=== PATIENT | female | born 1960 | race Caucasian/White ===

== ENCOUNTER 2017-01-01 09:36 | Emergency (ER) | payer BC, MEDICARE ==
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
[2017-01-01 10:16] LABS: Basophils % (A) 1 %; CHCM 31.7; Eosinophils % (A) 1 %; HCT 35.7 % (34.0-46.0); HDW 2.06; HGB 11.5 gm/dL (11.4-16.0); Luc # (Auto) 0.03; Luc % (Auto) 1; Lymphocytes % (A) 27 %; MCH 29.5 pg (25.0-35.0); MCHC 32.1 g/dL (31.0-37.0); MCV 91.7 fL (80.0-100.0); Mean Platelet Volume 8.3; Monocytes # (A) 0.2 k/uL (0-1.0); Monocytes % (A) 5 %; Neutrophils # (A) 2.4 k/uL (1.3-7.7); Neutrophils % (A) 65 %; RDW 13.3 % (11.5-15.5); WBC 3.6 k/uL (3.8-10.6); WBC (Perox) 3.66
[2017-01-01 10:18] LABS: Appearance,Urine Clear (Clear); Bilirubin,Urine Negative (Negative); Glucose,Urine (UA) Negative (Negative); Ketones,Urine Negative (Negative); Leukocyte Esterase,Urine Negative (Negative); Nitrite,Urine Negative (Negative); Particle Count 271; Protein,Urine Negative (Negative); RBC,Urine <1 /hpf (0-5); Specific Gravity,Urine 1.002 (1.001-1.035); UA Billing (MACRO vs. MICRO) MICRO; Urobilinogen,Urine <2.0 mg/dL (<2.0); WBC,Urine <1 /hpf (0-5)
[2017-01-01 10:24] LABS: INR 1.1 (<1.2); Partial Thromboplastin Time 23.5 sec (22.0-30.0); Prothrombin Time 10.9 sec (9.0-12.0)
[2017-01-01 10:29] LABS: ALT 25 U/L (9-52); AST 17 U/L (14-36); Alkaline Phosphatase 63 U/L (38-126); Amylase 86 U/L (30-110); Anion Gap 11 mmol/L; Blood Urea Nitrogen 7 mg/dL (7-17); Calcium 10.2 mg/dL (8.4-10.2); Carbon Dioxide 23 mmol/L (22-30); Chloride 104 mmol/L (98-107); Glucose 94 mg/dL (74-99); Magnesium 1.9 mg/dL (1.6-2.3); Non-African American GFR(MDRD) 57 (>60 ml/min/1.73 sqM); Potassium 4.1 mmol/L (3.5-5.1); Sodium 138 mmol/L (137-145); Total Bilirubin 0.7 mg/dL (0.2-1.3); Total Protein 6.9 g/dL (6.3-8.2)
[2017-01-01 10:35] LABS: Creatine Kinase 62 U/L (30-135)
[2017-01-01 10:48] LABS: Creatine Kinase MB 0.5 ng/mL (0.0-2.4); Troponin I <0.012 ng/mL (0.000-0.034)
--- NOTE | 2017-01-01 10:50 | XR ---
EXAMINATION TYPE: XR chest 2V DATE OF EXAM: 01/01/2017 COMPARISON: NONE HISTORY: Rib pain and weakness TECHNIQUE: Frontal and lateral views of the chest are obtained. FINDINGS: There is no focal air space opacity, pleural effusion, or pneumothorax seen. The cardiac silhouette size is within normal limits. The osseous structures are intact. Surgical fixation thora columbar rods are partially visualized from fixation of an S-shaped scoliotic curvature, also partial ly visualized. IMPRESSION: No acute cardiopulmonary process.
--- NOTE | 2017-01-01 10:51 | XR ---
EXAMINATION TYPE: XR KUB DATE OF EXAM: 01/01/2017 10:30 AM CLINICAL HISTORY: Right-sided rib pain and weakness. TECHNIQUE: Single supine KUB image of the abdomen is obtained. COMPARISON: None. FINDINGS: Scattered gas is seen in non-distended small bowel loops. Gas and fecal material is seen in non-distended colon. No abnormal calcification within the abdomen. The lung bases are clear and the osseous structures are intact. Partial visualization of an S-shaped rotatory scoliosis with thoracolu mbar fixation rods and surgical resection of the posterior elements of the lower lumbar spine are not ed. Phleboliths are seen within the low pelvis. IMPRESSION: Nonobstructive bowel gas pattern.
[2017-01-01] MEDS ORDERED: HYDROmorphone 1 MG/ML 1 ML SYRINGE IVP STA (10:57)
[2017-01-01] MEDS ORDERED: RX INFO: IV CONTRAST WAS GIVEN 1 EACH MISC MISCELLANE PRN (10:57)
[2017-01-01] MEDS ORDERED: ONDANSETRON 4 MG/2 ML VIAL IVP STA (10:57)
[2017-01-01] MEDS ORDERED: HYDROmorphone 0.5 MG/0.5 ML SYRINGE IVP STA (11:46)
--- NOTE | 2017-01-01 12:04 | CT ---
EXAMINATION TYPE: CT abdomen pelvis w con DATE OF EXAM: 01/01/2017 HISTORY: Patient complains of RUQ/flank pain and weakness. CT DLP: 960mGycm Automated Exposure Control for Dose Reduction was Utilized. CONTRAST: CT scan of the abdomen and pelvis is performed with IV Contrast, patient injected with 80 mL of Omnip aque 300. COMPARISON: 01/07/2015r FINDINGS: Rudy artifact from the patient's multilevel thoracolumbar fusion rods partially obscure vi sualization of surrounding structures. LUNG BASES: Bibasilar subsegmental dependent atelectasis is noted as well as pleural parenchymal line ar scarring. LIVER/GB: 6 mm hypoattenuated hepatic lesion within segment 8 of the liver is similar to the exam of 2015 and likely relates to a benign cyst. Additionally wedge-shaped area of hypoattenuation within se gment IVb is also similar to the prior and likely relates to focal fatty infiltration. Smaller hypoat tenuated lesions near the hepatic dome are subtly seen on the prior exam and also likely related to h epatic cysts although too small to accurately characterize. No intrahepatic biliary ductal dilatation . Gallbladder is elongated although there is no common bile duct dilation. PANCREAS: No significant abnormality is seen. No ductal dilatation SPLEEN: No significant abnormality is seen. ADRENALS: No significant abnormality is seen. Adrenal glands are symmetric and maintained their radha l adreniform morphology. KIDNEYS: No significant abnormality is seen. 4 mm hypoattenuated region is seen within the left kidne y, too small to accurately characterize similar to a right 5.5 mm lesion. BOWEL: Small hiatal hernia and postsurgical changes of the gastroesophageal junction are noted. Anast omotic site is seen within the right hemicolon. Colon is largely decompressed and suboptimally evalua melody given contrast and decompression. Few colonic diverticula are seen without pericolonic fat strand ing. UTERUS/ADNEXA: No gross abnormality seen. LYMPH NODES: No greater than 1cm abdominal or pelvic lymph nodes are appreciated. OSSEOUS STRUCTURES: There is an S-shaped rotatory scoliotic curvature of the thoracolumbar spine with surgical fixation and resection of the posterior elements of the lower lumbar spine. OTHER: No significant additional abnormality is seen. IMPRESSION: 1. Elongation of the gallbladder without evidence of common bile duct dilation. No CT evidence of cho lelithiasis. Correlate with serum laboratory values given the patient's right-sided abdominal pain. 2. Small hiatal hernia and postoperative changes at the gastroesophageal junction. 3. Stable hypoattenuated subcentimeter hepatic lesions favored to represent hepatic cysts. Similar st able renal hypoattenuated lesions are also favored to represent cysts although too small to accuratel y characterize. 4. Colonic diverticula without evidence of acute diverticulitis.
[2017-01-01 13:14] VITALS: BP 118/82; PULSE 87; RESP 18; TEMP 97.9
== END 2017-01-01 13:18 | disposition home or self-care (01) ==
LOC: EC 09:36
DX: R10.9 Unspecified abdominal pain (principal); M54.9 Dorsalgia, unspecified; R53.1 Weakness; K44.9 Diaphragmatic hernia without obstruction or gangrene; K57.30 Diverticulosis of large intestine without perforation or abscess without bleeding; N28.89 Other specified disorders of kidney and ureter; K76.89 Other specified diseases of liver; I10 Essential (primary) hypertension; F32.9 Major depressive disorder, single episode, unspecified; Z79.899 Other long term (current) drug therapy; Z88.6 Allergy status to analgesic agent; Z90.49 Acquired absence of other specified parts of digestive tract; Z98.890 Other specified postprocedural states; Z53.8 Procedure and treatment not carried out for other reasons
CPT/HCPCS: 36415; 93005; 85379; 80053; 82150; 82550; 82553; 83690; 83735; 84484; 85025; 85610; 85730; 81001; 71020; 74000; 74177; 99284; 96374; 96375; J2405; Q9967; J1170

== ENCOUNTER → 2017-10-08 | Outpatient (CLI) | payer BC, MEDICARE ==
--- NOTE | 2017-10-13 07:37 | MM ---
Reason for exam: screening (asymptomatic). Last mammogram was performed 8 years ago. History: Patient is postmenopausal. Physical Findings: A clinical breast exam by your physician is recommended on an annual basis and results should be correlated with mammographic findings. MG Screening Mammo w CAD Bilateral CC and MLO view(s) were taken. Prior study comparison: October 23, 2009, bilateral digital screening mammogram. There are scattered fibroglandular densities. No significant changes when compared with prior studies. ASSESSMENT: Negative, BI-RAD 1 RECOMMENDATION: Routine screening mammogram of both breasts in 1 year.
== END | disposition home or self-care (01) ==
LOC: RADMAMWWP 12:51
PROVIDERS: ATTEND Obstetrics & Gynecology Obstetrics
DX: Z12.31 Encounter for screening mammogram for malignant neoplasm of breast (principal)
CPT/HCPCS: 77067

== ENCOUNTER 2018-05-29 11:29 | Inpatient (IN) | payer BC, MEDICARE ==
[2018-05-29] MEDS ORDERED: SODIUM CHLORIDE 0.9% 1,000 ML IV STA (11:55)
[2018-05-29] MEDS ORDERED: AMPICILLIN-SULBACTAM 3 GM in SODIUM CHLORIDE 0.9% 100 ML IVPB STA (11:58)
[2018-05-29] MEDS ORDERED: ONDANSETRON 4 MG/2 ML VIAL IVP STA (12:14)
[2018-05-29] MEDS ORDERED: MORPHINE SULFATE 4 MG/ML SYRINGE IVP STA (12:14)
--- NOTE | 2018-05-29 12:19 | ED ---
Animal Bite HPI - General Chief Complaint: Animal Bite Stated Complaint: dog bite rt arm Time Seen by Provider: 05/29/18 11:39 Source: patient, RN notes reviewed Mode of arrival: ambulatory Limitations: no limitations - History of Present Illness Initial Comments: 57-year-old female presents emergency Department chief complaint of dog bite to her right arm. Patient states that happened yesterday by her dog was up-to-date vaccinations and states that she is up-to-date on her tetanus. Patient states she took some old Augmentin yesterday but states she woke up with severe right wrist pain, redness, streaking redness up her arm and complains of right axilla pain. Patient reports no fever or chills, night sweats. Patient states that she's had no major infections from bites in the past. - Related Data Home Medications Medication Instructions Recorded Confirmed Citalopram Hydrobromide [CeleXA] 20 mg PO QAM 11/01/13 01/01/17 Celecoxib [CeleBREX] 200 mg PO BID PRN 01/07/15 01/01/17 HYDROcodone/APAP 7.5-325MG [[place] 1 tab PO TID PRN 01/01/17 01/01/17 7.5-325] Valsartan [Diovan] 80 mg PO DAILY 01/01/17 01/01/17 Allergies Allergy/AdvReac Type Severity Reaction Status Date / Time NSAIDS (Non-Steroidal Allergy Unknown Verified 01/01/17 10:44 Anti-Inflamma Review of Systems ROS Statement: Those systems with pertinent positive or pertinent negative responses have been documented in the HPI. ROS Other: All systems not noted in ROS Statement are negative. 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 pain injections, surgery to remove part of thyroid and two tumors 11/2013 Past Anesthesia/Blood Transfusion Reactions: No Reported Reaction Past Psychological History: Anxiety, Depression Smoking Status: Never smoker Past Alcohol Use History: Occasional Past Drug Use History: None Reported - Past Family History Father Family Medical History: Hypertension Mother Family Medical History: Hypertension General Exam Limitations: no limitations General appearance: alert, in no apparent distress Head exam: Present: atraumatic, normocephalic, normal inspection Neck exam: Present: normal inspection. Absent: tenderness, meningismus, lymphadenopathy Respiratory exam: Present: normal lung sounds bilaterally. Absent: respiratory distress, wheezes, rales, rhonchi, stridor Cardiovascular Exam: Present: regular rate, normal rhythm, normal heart sounds. Absent: systolic murmur, diastolic murmur, rubs, gallop, clicks Extremities exam: Present: other (Right axilla there is tenderness with palpation, palpable lymph nodes, there is a puncture wound to the right wrist on the ventral aspect, surrounding erythema and noted erythema streaking past the right elbow) Skin exam: Present: warm, dry Course Vital Signs 05/29/18 11:32 Temperature 98.8 F Pulse Rate 92 Respiratory 18 Rate Blood Pressure 111/79 O2 Sat by Pulse 98 Oximetry Medical Decision Making - Medical Decision Making 57-year-old female present for dog bite, infection. Patient has taken advice at home and scheduled outpatient treatment. Patient will be admitted for cellulitis related to dog bite on [place]. - Lab Data Result diagrams: 05/29/18 12:00 05/29/18 12:00 Lab Results 05/29/18 05/29/18 05/29/18 Range/Units 12:00 12:00 12:00 WBC 8.3 (3.8-10.6) k/uL RBC 4.15 (3.80-5.40) m/uL Hgb 12.3 (11.4-16.0) gm/dL Hct 38.1 (34.0-46.0) % MCV 91.7 (80.0-100.0) fL MCH 29.6 (25.0-35.0) pg MCHC 32.3 (31.0-37.0) g/dL RDW 13.6 (11.5-15.5) % Plt Count 263 (150-450) k/uL Neutrophils % 74 % Lymphocytes % 17 % Monocytes % 6 % Eosinophils % 2 % Basophils % 1 % Neutrophils # 6.1 (1.3-7.7) k/uL Lymphocytes # 1.4 (1.0-4.8) k/uL Monocytes # 0.5 (0-1.0) k/uL Eosinophils # 0.2 (0-0.7) k/uL Basophils # 0.0 (0-0.2) k/uL Sodium 141 (137-145) mmol/L Potassium 4.4 (3.5-5.1) mmol/L Chloride 104 (98-107) mmol/L Carbon Dioxide 28 (22-30) mmol/L Anion Gap 9 mmol/L BUN 8 (7-17) mg/dL Creatinine 0.69 (0.52-1.04) mg/dL Est GFR (CKD-EPI)AfAm >90 (>60 ml/min/1.73 sqM) Est GFR (CKD-EPI)NonAf >90 (>60 ml/min/1.73 sqM) Glucose 89 (74-99) mg/dL Plasma Lactic Acid Stiven 2.0 (0.7-2.0) mmol/L Calcium 9.7 (8.4-10.2) mg/dL Total Bilirubin 0.9 (0.2-1.3) mg/dL AST 35 (14-36) U/L ALT 33 (9-52) U/L Alkaline Phosphatase 55 (38-126) U/L Total Protein 7.0 (6.3-8.2) g/dL Albumin 4.6 (3.5-5.0) g/dL Disposition Clinical Impression: Dog bite Disposition: ADMITTED IP TO THIS [facility] Instructions (If sedation given, give patient instructions): Animal Bite (ED) Referrals: Dalton Cook DO [Primary Care Provider] - 1-2 days
[2018-05-29 12:22] LABS: Basophils % (A) 1 %; Eosinophils # (A) 0.2 k/uL (0-0.7); Eosinophils % (A) 2 %; HCT 38.1 % (34.0-46.0); HGB 12.3 gm/dL (11.4-16.0); Lymphocytes # (A) 1.4 k/uL (1.0-4.8); Lymphocytes % (A) 17 %; MCH 29.6 pg (25.0-35.0); MCHC 32.3 g/dL (31.0-37.0); MCV 91.7 fL (80.0-100.0); Mean Platelet Volume 7.3; Monocytes # (A) 0.5 k/uL (0-1.0); Monocytes % (A) 6 %; Neutrophils # (A) 6.1 k/uL (1.3-7.7); Neutrophils % (A) 74 %; Platelet Count 263 k/uL (150-450); RBC 4.15 m/uL (3.80-5.40); RDW 13.6 % (11.5-15.5); WBC 8.3 k/uL (3.8-10.6)
--- NOTE | 2018-05-29 12:35 | XR ---
EXAMINATION TYPE: XR wrist complete RT DATE OF EXAM: 05/29/2018 COMPARISON: NONE HISTORY: 57-year-old female with pain TECHNIQUE: 4 views FINDINGS: Moderate to severe degenerative joint space narrowing and marginal spurring at the first CMC joint an d moderate at the triscaphe joint. The radiocarpal and distal radioulnar joint appear intact. Metacar pal compartment appear intact. No acute fracture, subluxation, dislocation seen. IMPRESSION: Moderate to severe osteoarthritic changes of the base of the thumb. No acute osseous abnormality seen .
[2018-05-29 12:36] LABS: ALT 33 U/L (9-52); AST 35 U/L (14-36); Albumin 4.6 g/dL (3.5-5.0); Alkaline Phosphatase 55 U/L (38-126); Anion Gap 9 mmol/L; Blood Urea Nitrogen 8 mg/dL (7-17); Calcium 9.7 mg/dL (8.4-10.2); Carbon Dioxide 28 mmol/L (22-30); Chloride 104 mmol/L (98-107); Glucose 89 mg/dL (74-99); Potassium 4.4 mmol/L (3.5-5.1); Sodium 141 mmol/L (137-145); Total Bilirubin 0.9 mg/dL (0.2-1.3)
[2018-05-29] MEDS ORDERED: ACETAMINOPHEN TAB 325 MG TAB PO PRN (13:10)
[2018-05-29] MEDS ORDERED: NALOXONE 0.4 MG/ML 1 ML VIAL IV PRN (13:10)
[2018-05-29] MEDS ORDERED: HYDROcodone/APAP 5-325MG 1 EACH TAB PO PRN (13:10)
[2018-05-29] MEDS: SODIUM CHLORIDE 0.9% 1,000 ML IV SCH (15:45)
[2018-05-29] MEDS: AMPICILLIN-SULBACTAM 3 GM in SODIUM CHLORIDE 0.9% 100 ML IVPB SCH ×2 (17:14→23:24)
[2018-05-29] MEDS: MORPHINE SULFATE 4 MG/ML SYRINGE IV PRN (17:14)
[2018-05-29] MEDS: HYDROcodone/APAP 7.5-325MG 1 EACH TAB PO SCH (21:35)
--- NOTE | 2018-05-29 22:04 | P.HPIM ---
History of Present Illness H&P Date: 05/29/18 Chief Complaint: Right arm swelling and redness Patient is a 57-year-old female with a known history of fibromyalgia, hypertension, osteoarthritis, hypothyroidism and anxiety/depression came to the hospital with complaints of dog bite on her right arm. Patient says that she was bitten by her dog on the right wrist. Since then patient has been having redness and swelling and pain from right wrist up to the shoulder and axillary area. Patient has been having worsening pain with movement. Denied any fever or chills. No sweating. Patient does have a previous history of dog bite. Patient says that her nausea is up-to-date with vaccination and patient is also up-to-date on her tetanus vaccine. Patient took her old Augmentin yesterday without improvement in pain. Patient came to ER for further management. Patient follows with Dr. Cook as an outpatient. X-ray of the right wrist showed moderate to severe osteoarthritic changes of the base of the thumb. No acute osseous abnormality seen. No leukocytosis. Review of Systems Constitutional: Patient denies any fever or chills . No generalized weakness or weight loss. Abdomen: Patient denied nausea vomiting and diarrhea and abdominal pain. Cardiovascular: Patient denies any chest pain or short of breath no palpitations. Respiratory: patient denied any cough is from production. No shortness of breath Neurologic: Patient denied any numbness or tingling headache. Musculoskeletal: Patient denies any complaints of joint swelling or deformity. Right arm swelling and redness and pain Skin: Negative Psychiatric: Negative Endocrine: No heat or cold intolerance. No recent weight gain. Genitourinary: No dysuria or hematuria. 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 pain injections, surgery to remove part of thyroid and two tumors 11/2013 Past Anesthesia/Blood Transfusion Reactions: No Reported Reaction Past Psychological History: Anxiety, Depression Smoking Status: Never smoker Past Alcohol Use History: Occasional Past Drug Use History: None Reported - Past Family History Father Family Medical History: Hypertension Mother Family Medical History: Hypertension Medications and Allergies Home Medications Medication Instructions Recorded Confirmed Type Citalopram Hydrobromide [CeleXA] 20 mg PO DAILY 11/01/13 05/29/18 History Celecoxib [CeleBREX] 200 mg PO BID PRN 01/07/15 05/29/18 History HYDROcodone/APAP 7.5-325MG [[place] 1 tab PO TID 01/01/17 05/29/18 History 7.5-325] Losartan Potassium 50 mg PO DAILY 05/29/18 05/29/18 History hydrOXYzine HCL [Atarax] 25 mg PO BID 05/29/18 05/29/18 History Allergies Allergy/AdvReac Type Severity Reaction Status Date / Time NSAIDS (Non-Steroidal Allergy Unknown Verified 05/29/18 13:47 Anti-Inflamma aspirin AdvReac HISTORY OF Verified 05/29/18 13:47 STOMACH ULCERS Physical Exam Vitals: Vital Signs Temp Pulse Pulse Pulse Resp BP BP 05/29/18 20:40 97.8 F 77 16 132/88 05/29/18 13:59 98.1 F 75 137/84 05/29/18 13:46 82 16 112/74 05/29/18 11:32 98.8 F 92 18 111/79 Pulse Ox 05/29/18 20:40 96 05/29/18 13:59 98 05/29/18 13:46 99 05/29/18 11:32 98 Intake and Output 05/29/18 05/29/18 05/29/18 06:59 14:59 22:59 Other: Weight 58.967 kg PHYSICAL EXAMINATION: Patient is lying in the bed comfortably, no acute distress, awake alert and oriented.. HEENT: Normocephalic. Neck is supple. Pupils reactive. Nostrils clear. Oral cavity is moist. Ears reveal no drainage. Neck reveals no JVD, carotid bruits, or thyromegaly. CHEST EXAMINATION: Trachea is central. Symmetrical expansion. Lung hawley clear to auscultation and percussion. CARDIAC: Normal S1, S2 with no gallops. No murmurs ABDOMEN: Soft. Bowel sounds normal. No organomegaly. No abdominal bruits. Extremities: reveal no edema. No clubbing or cyanosis Right upper extremity swelling and redness from up above the wrist up to the elbow and also streak-like redness extending up to the axillary area. Neurologically awake, alert, oriented x3 with well-coordinated movements. No focal deficits noted Skin: No rash or skin lesions. Psychiatric: Coperative. Nonsuicidal Musculoskeletal: No joint swelling or deformity. Normal range of motion. Results CBC & Chem 7: 05/29/18 12:00 05/29/18 12:00 Thrombosis Risk Factor Assmnt - DVT/VTE Prophylaxis DVT/VTE Prophylaxis: Pharmacologic Prophylaxis ordered - Choose All That Apply Any of the Below Risk Factors Present?: Yes Each Factor Represents 1 point: Age 41-60 years Thrombosis Risk Factor Assessment Total Risk Factor Score: 1 Thrombosis Risk Factor Assessment Level: Low Risk Assessment and Plan Assessment: Dog bite on the right wrist with cellulitis of the forearm Hypertension Hypothyroidism Fibromyalgia Osteoarthritis History of stomach ulcers Chronic back pain History of hiatal hernia repair/Cee fundoplication Anxiety/depression DVT prophylaxis Plan: Patient will be continued on antibiotics in the form of Unasyn. Continue with pain medications and home medications. Due to streak-like redness extending up to the axilla will also get ultrasound venous duplex of the right upper extremity to rule out DVT. Follow-up blood cultures. Continue the current management and further recommendations based on the clinical course. Time with Patient: Greater than 30
[2018-05-30] MEDS: MORPHINE SULFATE 4 MG/ML SYRINGE IV PRN ×4 (02:25→23:51)
[2018-05-30] MEDS: AMPICILLIN-SULBACTAM 3 GM in SODIUM CHLORIDE 0.9% 100 ML IVPB SCH ×4 (06:09→23:44)
[2018-05-30] MEDS: LOSARTAN 50 MG TAB PO SCH (09:15)
[2018-05-30] MEDS: HEPARIN SODIUM,PORCINE 5,000 UNIT/ML 1 ML VIAL SQ SCH ×2 (09:15→21:55)
[2018-05-30] MEDS: HYDROcodone/APAP 7.5-325MG 1 EACH TAB PO SCH ×3 (09:16→21:55)
[2018-05-30] MEDS: CITALOPRAM HYDROBROMIDE 20 MG TAB PO SCH (09:16)
--- NOTE | 2018-05-30 09:46 | US ---
EXAMINATION TYPE: US venous doppler duplex UE RT DATE OF EXAM: 05/30/2018 COMPARISON: NONE CLINICAL HISTORY: dog bite . SIDE PERFORMED: rt Right Arm: Negative for DVT IMPRESSION: 1. Right upper extremity venous ultrasound negative for deep venous thrombosis.
--- NOTE | 2018-05-30 12:37 | P.PN ---
Subjective Progress Note Date: 05/30/18 Patient is a 57-year-old female with a known history of fibromyalgia, hypertension, osteoarthritis, hypothyroidism and anxiety/depression came to the hospital with complaints of dog bite on her right arm. Patient says that she was bitten by her dog on the right wrist. Since then patient has been having redness and swelling and pain from right wrist up to the shoulder and axillary area. Patient has been having worsening pain with movement. Denied any fever or chills. No sweating. Patient does have a previous history of dog bite. Patient says that her nausea is up-to-date with vaccination and patient is also up-to-date on her tetanus vaccine. Patient took her old Augmentin yesterday without improvement in pain. Patient came to ER for further management. Patient follows with Dr. Cook as an outpatient. X-ray of the right wrist showed moderate to severe osteoarthritic changes of the base of the thumb. No acute osseous abnormality seen. No leukocytosis. 05/30/18 maintained on Unasyn, improving redness and swelling from wrist up through to axillary area. Able to move wrist freely, fine motor skills present of the affected extremity. Afebrile, blood cultures pending. Denies chest p ain, palpitations or increased shortness of breath. Objective - Vital Signs Vital signs: Vital Signs Temp 98 F 05/29/18 23:21 Pulse 72 05/29/18 23:21 Resp 18 05/29/18 23:21 BP 126/83 05/29/18 23:21 Pulse Ox 97 05/29/18 23:21 Intake & Output 05/29/18 05/30/18 05/30/18 18:59 06:59 18:59 Intake Total 1700 Balance 1700 Weight 58.967 kg Intake: Intake, IV Titration 200 Amount Ampicillin-Sulbactam 3 gm 200 In Sodium Chloride 0.9% 100 ml @ 200 mls/hr IVPB Q6HR [facility] Rx#:[id number] Oral 1500 Other: Voiding Method Toilet # Voids 1 - Exam Patient is sitting up in the bed comfortably, no acute distress, awake alert and oriented.. HEENT: Normocephalic. Neck is supple. Pupils reactive. Oral mucosa moist Neck reveals no JVD, carotid bruits, or thyromegaly. CHEST EXAMINATION: Trachea is central. Symmetrical expansion. Lung hawley clear to auscultation and percussion. CARDIAC: Normal S1, S2 with no gallops. No murmurs ABDOMEN: Soft. Bowel sounds normal. No organomegaly. No abdominal bruits. Extremities: reveal no edema. No clubbing or cyanosis Right upper extremity, improving swelling, redness from up above the wrist up to the elbow and also streak-like redness extending up to the axillary area. Outlined with no further progression. Neurologically awake, alert, oriented x3 with well-coordinated movements. No focal deficits noted Skin: No rash or skin lesions. Musculoskeletal: No joint swelling or deformity. Normal range of motion. - Labs CBC & Chem 7: 05/29/18 12:00 05/29/18 12:00 Assessment and Plan Assessment: Dog bite on the right wrist with cellulitis of the forearm Hypertension Hypothyroidism Fibromyalgia Osteoarthritis History of stomach ulcers Chronic back pain History of hiatal hernia repair/Cee fundoplication Anxiety/depression Plan: Continue on current medication regime ,monitoring and symptomatic treatment. Maintain IV antibiotics of Unasyn. Close monitoring. Continue with supportive care. Discharge planning in progress within the next 24-48 hours. The impression and plan of care has been dictated as directed. : I performed a history and examination of this patient, discussed the same with the dictator. I agree with the dictator's note ,documented as a scribe. Any additional findings or plans will be noted.
[2018-05-30] MEDS: SODIUM CHLORIDE 0.9% 1,000 ML IV SCH (14:47)
[2018-05-31] MEDS: AMPICILLIN-SULBACTAM 3 GM in SODIUM CHLORIDE 0.9% 100 ML IVPB SCH ×3 (06:04→17:53)
[2018-05-31] MEDS: LOSARTAN 50 MG TAB PO SCH (08:04)
[2018-05-31] MEDS: CITALOPRAM HYDROBROMIDE 20 MG TAB PO SCH (08:04)
[2018-05-31] MEDS: HEPARIN SODIUM,PORCINE 5,000 UNIT/ML 1 ML VIAL SQ SCH ×3 (08:04→20:40)
[2018-05-31] MEDS: HYDROcodone/APAP 7.5-325MG 1 EACH TAB PO SCH ×3 (08:04→22:35)
[2018-05-31] MEDS: MORPHINE SULFATE 4 MG/ML SYRINGE IV PRN ×2 (11:59→20:36)
[2018-05-31 16:37] VITALS: RESP 16
--- NOTE | 2018-05-31 16:58 | P.PN ---
Subjective Progress Note Date: 05/31/18 Patient is a 57-year-old female with a known history of fibromyalgia, hypertension, osteoarthritis, hypothyroidism and anxiety/depression came to the hospital with complaints of dog bite on her right arm. Patient says that she was bitten by her dog on the right wrist. Since then patient has been having redness and swelling and pain from right wrist up to the shoulder and axillary area. Patient has been having worsening pain with movement. Denied any fever or chills. No sweating. Patient does have a previous history of dog bite. Patient says that her nausea is up-to-date with vaccination and patient is also up-to-date on her tetanus vaccine. Patient took her old Augmentin yesterday without improvement in pain. Patient came to ER for further management. Patient follows with Dr. Cook as an outpatient. X-ray of the right wrist showed moderate to severe osteoarthritic changes of the base of the thumb. No acute osseous abnormality seen. No leukocytosis. 05/30/18 maintained on Unasyn, improving redness and swelling from wrist up through to axillary area. Able to move wrist freely, fine motor skills present of the affected extremity. Afebrile, blood cultures pending. Denies chest p ain, palpitations or increased shortness of breath. 05/31/2018 significant clinical improvement on Unasyn. Minimal redness, edema, tenderness. Preliminary blood cultures negative. Afebrile. Denies chest pain, palpitations. Denies shortness of breath. Objective - Vital Signs Vital signs: Vital Signs Temp 97.9 F 05/31/18 16:34 Pulse 79 05/31/18 16:34 Resp 16 05/31/18 16:34 BP 133/88 05/31/18 16:34 Pulse Ox 96 05/31/18 16:34 Intake & Output 05/30/18 05/31/18 05/31/18 18:59 06:59 18:59 Intake Total 1200 Balance 1200 Intake: Intake, IV Titration 200 Amount Ampicillin-Sulbactam 3 gm 200 In Sodium Chloride 0.9% 100 ml @ 200 mls/hr IVPB Q6HR [facility] Rx#:[id number] Oral 1000 Other: Voiding Method Toilet # Voids 1 2 1 - Exam Patient is sitting up in the bed comfortably, no acute distress, awake alert and oriented X 3.. HEENT: Normocephalic. Neck is supple. Pupils reactive. Oral mucosa moist Neck reveals no JVD, carotid bruits, or thyromegaly. CHEST EXAMINATION: Trachea is central. Symmetrical expansion. Lung hawley clear to auscultation and percussion. CARDIAC: Normal S1, S2 with no gallops. No murmurs ABDOMEN: Soft. Bowel sounds normal. No organomegaly. No abdominal bruits. Extremities: reveal no edema. No clubbing or cyanosis Right upper extremity, minimal redness from up above the wrist extending up to the axillary area. No swelling. Mild tenderness. Outlined with no further progression. Neurologically awake, alert, oriented x3 with well-coordinated movements. No focal deficits noted Skin: No rash or skin lesions. Musculoskeletal: No joint swelling or deformity. Normal range of motion. - Labs CBC & Chem 7: 05/29/18 12:00 05/29/18 12:00 Labs: Microbiology - Last 24 Hours (Table) 05/29/18 12:00 Blood Culture - Preliminary Blood No Growth after 48 hours Assessment and Plan Assessment: Dog bite on the right wrist with cellulitis of the forearm Hypertension Hypothyroidism Fibromyalgia Osteoarthritis History of stomach ulcers Chronic back pain History of hiatal hernia repair/Cee fundoplication Anxiety/depression Plan: Continue on current medication regime ,monitoring and symptomatic treatment. Maintain IV antibiotics of Unasyn. Discharge planning in progress for tomorrow. The impression and plan of care has been dictated as directed. : I performed a history and examination of this patient, discussed the same with the dictator. I agree with the dictator's note ,documented as a scribe. Any additional findings or plans will be noted.
[2018-05-31] MEDS: SODIUM CHLORIDE 0.9% 1,000 ML IV SCH (17:53)
[2018-06-01] MEDS: AMPICILLIN-SULBACTAM 3 GM in SODIUM CHLORIDE 0.9% 100 ML IVPB SCH ×2 (00:42→06:34)
[2018-06-01] MEDS: MORPHINE SULFATE 4 MG/ML SYRINGE IV PRN (06:41)
[2018-06-01] MEDS: HYDROcodone/APAP 7.5-325MG 1 EACH TAB PO SCH (07:31)
[2018-06-01] MEDS: CITALOPRAM HYDROBROMIDE 20 MG TAB PO SCH (07:31)
[2018-06-01] MEDS: HEPARIN SODIUM,PORCINE 5,000 UNIT/ML 1 ML VIAL SQ SCH ×2 (07:33→07:35)
[2018-06-01] MEDS: LOSARTAN 50 MG TAB PO SCH (08:14)
[2018-06-01 08:15] VITALS: PULSE 65; TEMP 98.6
--- NOTE | 2018-06-01 08:32 | P.DS ---
Providers Date of admission: 05/29/18 13:10 Expected date of discharge: 06/01/18 Attending physician: Dalton Cook Primary care physician: Dalton Cook [facility] Course: Final Diagnoses: Dog bite on the right wrist with cellulitis of the forearm Hypertension Hypothyroidism Fibromyalgia Osteoarthritis History of stomach ulcers Chronic back pain History of hiatal hernia repair/Cee fundoplication Anxiety/depression Hospital course:Patient is a 57-year-old female with a known history of fibromyalgia, hypertension, osteoarthritis, hypothyroidism and anxiety/depression came to the hospital with complaints of dog bite on her right arm. Patient says that she was bitten by her dog on the right wrist. Since then patient has been having redness and swelling and pain from right wrist up to the shoulder and axillary area. Patient has been having worsening pain with movement. Denied any fever or chills. No sweating. Patient does have a previous history of dog bite. Patient says that her nausea is up-to-date with vaccination and patient is also up-to-date on her tetanus vaccine. Patient took her old Augmentin yesterday without improvement in pain. Patient came to ER for further management. Patient follows with Dr. Cook as an outpatient. X-ray of the right wrist showed moderate to severe osteoarthritic changes of the base of the thumb. No acute osseous abnormality seen. No leukocytosis. 05/30/18 maintained on Unasyn, improving redness and swelling from wrist up through to axillary area. Able to move wrist freely, fine motor skills present of the affected extremity. Afebrile, blood cultures pending. Denies chest luz n, palpitations or increased shortness of breath. 05/31/2018 significant clinical improvement on Unasyn. Minimal redness, edema, tenderness. Preliminary blood cultures negative. Afebrile. Denies chest pain, palpitations. Denies shortness of breath. 06/01/2018 maintained on Unasyn. Significant clinical improvement. Afebrile, blood cultures remain negative. No redness ,edema, trace tenderness. Denies chest pain, palpitations or shortness of breath. Patient is being discharged home in a stable condition with guarded prognosis. - Exam GENERAL:no acute distress, awake alert and orienteted X 3. CHEST EXAMINATION: Lung hawley clear to auscultation and percussion. CARDIAC: Normal S1, S2 with no gallops. No murmurs ABDOMEN: Soft. Bowel sounds normal. Right upper extremity, no redness, No swelling. trace tenderness. Neurologically: No focal deficits The impression and plan of care has been dictated as directed. : I performed a history and examination of this patient, discussed the same with the dictator. I agree with the dictator's note ,documented as a scribe. Any additional findings or plans will be noted. Time taken 35 minutes Patient Condition at Discharge: Stable Plan - Discharge Summary Discharge Rx Participant: Yes New Discharge Prescriptions: New Amoxicillin/Potassium Clav [Augmentin 875-125 Tablet] 1 tab PO Q12HR #20 tab Continue Citalopram Hydrobromide [CeleXA] 20 mg PO DAILY Celecoxib [CeleBREX] 200 mg PO BID PRN PRN Reason: Pain HYDROcodone/APAP 7.5-325MG [[place] 7.5-325] 1 tab PO TID hydrOXYzine HCL [Atarax] 25 mg PO BID Losartan Potassium 50 mg PO DAILY Discharge Medication List Citalopram Hydrobromide [CeleXA] 20 mg PO DAILY 11/01/13 [History] Celecoxib [CeleBREX] 200 mg PO BID PRN 01/07/15 [History] HYDROcodone/APAP 7.5-325MG [[place] 7.5-325] 1 tab PO TID 01/01/17 [History] Losartan Potassium 50 mg PO DAILY 05/29/18 [History] hydrOXYzine HCL [Atarax] 25 mg PO BID 05/29/18 [History] Amoxicillin/Potassium Clav [Augmentin 875-125 Tablet] 1 tab PO Q12HR #20 tab 06/01/18 [Rx] Follow up Appointment(s)/Referral(s): Dalton Cook DO [Primary Care Provider] - 1 Week Ambulatory/Diagnostic Orders: Complete Blood Count w/diff [LAB.AMB] Time Frame: 1 Week, Location: None Selected Patient Instructions/Handouts: Animal Bite (ED)
[2018-06-01 09:42] VITALS: BP 143/93
== END 2018-06-01 10:20 | disposition home or self-care (01) | DRG 603 ==
LOC: EC 11:29 → 4SSUR 13:10 → 6PED 18:19
PROVIDERS: ADMIT Family Medicine; ATTEND Family Medicine
DX: L03.113 Cellulitis of right upper limb (principal); S61.551A Open bite of right wrist, initial encounter; W54.0XXA Bitten by dog, initial encounter; E03.9 Hypothyroidism, unspecified; M79.7 Fibromyalgia; M19.90 Unspecified osteoarthritis, unspecified site; F41.9 Anxiety disorder, unspecified; F32.9 Major depressive disorder, single episode, unspecified; M54.9 Dorsalgia, unspecified; I10 Essential (primary) hypertension; G89.29 Other chronic pain; M19.031 Primary osteoarthritis, right wrist; Z87.11 Personal history of peptic ulcer disease; Z79.899 Other long term (current) drug therapy; Z98.890 Other specified postprocedural states; Z98.51 Tubal ligation status; Z88.6 Allergy status to analgesic agent; Z82.49 Family history of ischemic heart disease and other diseases of the circulatory system
CPT/HCPCS: 36415; 80053; 83605; 85025; 87040; 96365; 96375; 99284

== ENCOUNTER → 2018-06-06 | Outpatient (CLI) | payer BC, MEDICARE ==
[2018-06-06 16:21] LABS: Basophils # (A) 0.1 k/uL (0-0.2); Basophils % (A) 1 %; Eosinophils # (A) 0.1 k/uL (0-0.7); Eosinophils % (A) 2 %; HCT 38.5 % (34.0-46.0); HGB 12.2 gm/dL (11.4-16.0); Lymphocytes # (A) 1.7 k/uL (1.0-4.8); Lymphocytes % (A) 38 %; MCH 29.5 pg (25.0-35.0); MCHC 31.7 g/dL (31.0-37.0); MCV 92.9 fL (80.0-100.0); Mean Platelet Volume 7.7; Monocytes # (A) 0.3 k/uL (0-1.0); Monocytes % (A) 6 %; Neutrophils # (A) 2.3 k/uL (1.3-7.7); Neutrophils % (A) 51 %; Platelet Count 277 k/uL (150-450); RBC 4.15 m/uL (3.80-5.40); RDW 13.7 % (11.5-15.5); WBC 4.5 k/uL (3.8-10.6)
[2018-06-07 00:24] LABS: Calcium 9.8 mg/dL (8.7-10.3)
== END | disposition home or self-care (01) ==
LOC: LABWHC1 15:39
PROVIDERS: ATTEND Nurse Practitioner
DX: I10 Essential (primary) hypertension (principal); L03.90 Cellulitis, unspecified
CPT/HCPCS: 36415; 80048; 85025

== ENCOUNTER 2018-08-25 19:27 | Observation (INO) | payer BC, MEDICARE ==
[2018-08-25 20:29] LABS: Basophils % (A) 1 %; Eosinophils # (A) 0.2 k/uL (0-0.7); Eosinophils % (A) 4 %; HCT 35.1 % (34.0-46.0); HGB 11.2 gm/dL (11.4-16.0); Lymphocytes # (A) 1.6 k/uL (1.0-4.8); Lymphocytes % (A) 32 %; MCH 29.4 pg (25.0-35.0); Mean Platelet Volume 6.9; Monocytes # (A) 0.2 k/uL (0-1.0); Monocytes % (A) 5 %; Neutrophils # (A) 2.8 k/uL (1.3-7.7); Neutrophils % (A) 56 %; Platelet Count 299 k/uL (150-450); RBC 3.82 m/uL (3.80-5.40); RDW 13.5 % (11.5-15.5)
[2018-08-25 20:43] LABS: ALT 17 U/L (9-52); AST 25 U/L (14-36); African American GFR (CKD) >90 (>60 ml/min/1.73 sqM); Albumin 4.3 g/dL (3.5-5.0); Alkaline Phosphatase 58 U/L (38-126); Anion Gap 11 mmol/L; Blood Urea Nitrogen 11 mg/dL (7-17); C Reactive Protein 11.4 mg/L (<10.0); Calcium 9.3 mg/dL (8.4-10.2); Carbon Dioxide 22 mmol/L (22-30); Chloride 106 mmol/L (98-107); Glucose 93 mg/dL (74-99); Potassium 4.6 mmol/L (3.5-5.1); Sodium 139 mmol/L (137-145); Total Bilirubin 0.4 mg/dL (0.2-1.3); Total Protein 6.8 g/dL (6.3-8.2)
--- NOTE | 2018-08-25 20:49 | XR ---
EXAMINATION TYPE: XR hand complete LT DATE OF EXAM: 08/25/2018 COMPARISON: NONE HISTORY: Fourth digit laceration TECHNIQUE: 3 views FINDINGS: There is some narrowing of the IP joint spaces. I see no fracture nor dislocation. There is no sign of radiopaque foreign body. There is narrowing of the first carpometacarpal joint. IMPRESSION: Osteoarthritis. No fracture seen. No evidence of a foreign body.
[2018-08-25] MEDS: SODIUM CHLORIDE 0.9% 500 ML 500 ML IV SCH (20:51)
[2018-08-25] MEDS ORDERED: AMPICILLIN-SULBACTAM 3 GM in SODIUM CHLORIDE 0.9% 100 ML IVPB STA (20:53)
--- NOTE | 2018-08-25 22:04 | ED ---
Animal Bite HPI - General Source: patient Mode of arrival: ambulatory Limitations: no limitations <JohnsimonSaw - Last Filed: 08/25/18 22:04> - General Source: patient, RN notes reviewed Mode of arrival: ambulatory Limitations: no limitations <Bright Acevedo - Last Filed: 08/25/18 23:11> - General Chief Complaint: Animal Bite Stated Complaint: dog bite-sent by [facility] Time Seen by Provider: 08/25/18 19:38 - History of Present Illness Initial Comments: 58-year-old female presents to the emergency department for a chief complaint of dog bite to the left fourth digit. Patient states this up and yesterday when her to allow a bit her on the left fourth finger. States he is up-to-date on im munizations for rabies. States this is a happen she cleaned it out thoroughly and then went to [facility] for she was given a shot of antibiotics and started on Augmentin. States she has been taking this as directed. However today her finger has continued to swell and reddened. Patient did take off her ring. States it is painful to bend. Denies fevers or chills. Patient has no other complaints at this time including shortness of breath, chest pain, abdominal pain, nausea or vomiting, headache, or visual changes. (Bright Acevedo) - Related Data Home Medications Medication Instructions Recorded Confirmed Citalopram Hydrobromide [CeleXA] 20 mg PO DAILY 11/01/13 08/25/18 Celecoxib [CeleBREX] 200 mg PO BID 01/07/15 08/25/18 HYDROcodone/APAP 7.5-325MG [[place] 1 tab PO TID 01/01/17 08/25/18 7.5-325] Losartan Potassium 50 mg PO DAILY 05/29/18 08/25/18 hydrOXYzine HCL [Atarax] 25 mg PO BID PRN 05/29/18 08/25/18 Amoxicillin/Potassium Clav 1 tab PO Q12H 08/25/18 08/25/18 [Augmentin 875-125 Tablet] Cyclobenzaprine [Flexeril] 10 mg PO TID PRN 08/25/18 08/25/18 Vortioxetine Hydrobromide 10 mg PO DAILY 08/25/18 08/25/18 [Trintellix] Allergies Allergy/AdvReac Type Severity Reaction Status Date / Time NSAIDS (Non-Steroidal Allergy ULCERS Verified 08/25/18 21:54 Anti-Inflamma aspirin AdvReac HISTORY OF Verified 08/25/18 21:54 STOMACH ULCERS Review of Systems ROS Other: All systems not noted in ROS Statement are negative. <JohnsimonSaw - Last Filed: 08/25/18 22:04> ROS Other: All systems not noted in ROS Statement are negative. <Bright Acevedo - Last Filed: 08/25/18 23:11> ROS Statement: Those systems with pertinent positive or pertinent negative responses have been documented in the HPI. Past Medical History Past Medical History: Fibromyalgia, Hypertension, Osteoarthritis (OA), Thyroid Disorder Additional Past Medical History / Comment(s): anemia, STOMACH ulcers, back pain, no valve function in [place]- , Cee Funcoplication - to correct valve 10/2013 History of Any Multi-Drug Resistant Organisms: None Reported Past Surgical History: Back Surgery, Bowel Resection, Orthopedic Surgery, Tubal Ligation Additional Past Surgical History / Comment(s): Thoracic/Lumbar back surgery - rods and screws. pain injections, surgery to remove part of thyroid and two tumors 11/2013 Past Anesthesia/Blood Transfusion Reactions: No Reported Reaction Past Psychological History: Anxiety, Depression Smoking Status: Never smoker Past Alcohol Use History: Occasional Past Drug Use History: None Reported - Past Family History Father Family Medical History: Hypertension Mother Family Medical History: Hypertension <JohnsimonSaw - Last Filed: 08/25/18 22:04> General Exam Limitations: no limitations <DevangSaw - Last Filed: 08/25/18 22:04> General appearance: alert, in no apparent distress Head exam: Present: atraumatic, normocephalic, normal inspection Eye exam: Present: normal appearance, PERRL, EOMI. Absent: scleral icterus, conjunctival injection, periorbital swelling ENT exam: Present: normal exam, mucous membranes moist Neck exam: Present: normal inspection, full ROM. Absent: tenderness, meningismus, lymphadenopathy Respiratory exam: Present: normal lung sounds bilaterally. Absent: respiratory distress, wheezes, rales, rhonchi, stridor Cardiovascular Exam: Present: regular rate, normal rhythm, normal heart sounds. Absent: systolic murmur, diastolic murmur, rubs, gallop, clicks Extremities exam: Present: tenderness (Mild tenderness noted to the dorsal left fourth digit. No flexor tendon tenderness), normal capillary refill (Capillary refill less than 2 seconds, radial pulse 2+ in the left upper extremity). Absent: full ROM (Patient has some limited flexion of the left fourth digit, full extension however flexor leg is him is intact at all joints of the left fourth digit), pedal edema, joint swelling, calf tenderness Neurological exam: Present: alert, oriented X3, CN II-XII intact Psychiatric exam: Present: normal affect, normal mood <Bright Acevedo - Last Filed: 08/25/18 23:11> Course Vital Signs 08/25/18 19:31 Temperature 97.6 F Pulse Rate 84 Respiratory 18 Rate Blood Pressure 124/84 O2 Sat by Pulse 99 Oximetry Medical Decision Making - Lab Data Result diagrams: 08/25/18 20:17 08/25/18 20:17 <Saw Siddiqi - Last Filed: 08/25/18 22:04> - Lab Data Result diagrams: 08/25/18 20:17 08/25/18 20:17 <Bright Acevedo - Last Filed: 08/25/18 23:11> - Medical Decision Making I saw this patient in conjunction with the physician medical clerical assistant. I performed independent history and physical exam. Agree with case management. There is erythema and warmth spreading into the hand from above the bite. The patient has been on appropriate outpatient antibiotic therapy. Case discussed with Dr. Cook he will the patient for IV antibiotics to ensure that she begins improvement. (Saw Siddiqi) 58-year-old female presents to the emergency department for chief point of bug bites to the left fourth digit. Patient states that her dog bit her. He is up-to-date on immunizations for rabies. She was updated on tetanus. Patient received an IM injection of 2 biotics and Augmentin yesterday. States that today her finger started to swell and reddened. States that she has pain with bending the left fourth digit, full extension. On exam patient does have erythema and edema noted of the left fourth digit extending up into the proximal hand. Neurovascular status intact. There is a superficial laceration of the middle phalanx of the left fourth digit. This is about 1 cm in length.Vitals are stable. CBC and CMP are unremarkable. Lactic is 1.1. Patient was started on Unasyn and will be admitted for failure of outpatient antibiotics. (Bright Acevedo) - Lab Data Lab Results 08/25/18 08/25/18 08/25/18 Range/Units 20:17 20:17 20:17 WBC 5.0 (3.8-10.6) k/uL RBC 3.82 (3.80-5.40) m/uL Hgb 11.2 L (11.4-16.0) gm/dL Hct 35.1 (34.0-46.0) % MCV 92.0 (80.0-100.0) fL MCH 29.4 (25.0-35.0) pg MCHC 32.0 (31.0-37.0) g/dL RDW 13.5 (11.5-15.5) % Plt Count 299 (150-450) k/uL Neutrophils % 56 % Lymphocytes % 32 % Monocytes % 5 % Eosinophils % 4 % Basophils % 1 % Neutrophils # 2.8 (1.3-7.7) k/uL Lymphocytes # 1.6 (1.0-4.8) k/uL Monocytes # 0.2 (0-1.0) k/uL Eosinophils # 0.2 (0-0.7) k/uL Basophils # 0.0 (0-0.2) k/uL Sodium 139 (137-145) mmol/L Potassium 4.6 (3.5-5.1) mmol/L Chloride 106 (98-107) mmol/L Carbon Dioxide 22 (22-30) mmol/L Anion Gap 11 mmol/L BUN 11 (7-17) mg/dL Creatinine 0.78 (0.52-1.04) mg/dL Est GFR (CKD-EPI)AfAm >90 (>60 ml/min/1.73 sqM) Est GFR (CKD-EPI)NonAf 83 (>60 ml/min/1.73 sqM) Glucose 93 (74-99) mg/dL Plasma Lactic Acid Stiven 1.1 (0.7-2.0) mmol/L Calcium 9.3 (8.4-10.2) mg/dL Total Bilirubin 0.4 (0.2-1.3) mg/dL AST 25 (14-36) U/L ALT 17 (9-52) U/L Alkaline Phosphatase 58 (38-126) U/L C-Reactive Protein 11.4 H (<10.0) mg/L Total Protein 6.8 (6.3-8.2) g/dL Albumin 4.3 (3.5-5.0) g/dL Disposition <Saw Siddiqi - Last Filed: 08/25/18 22:04> Time of Disposition: 22:18 <Bright Acevedo - Last Filed: 08/25/18 23:11> Clinical Impression: Dog bite, Cellulitis, Failure of outpatient treatment Disposition: ADMITTED IP TO THIS HOSP Condition: Fair
[2018-08-25] MEDS ORDERED: NALOXONE 0.4 MG/ML 1 ML VIAL IV PRN (22:15)
[2018-08-25] MEDS ORDERED: ACETAMINOPHEN TAB 325 MG TAB PO PRN (22:15)
[2018-08-25] MEDS: SODIUM CHLORIDE 0.9% 1,000 ML IV SCH (22:43)
[2018-08-26] MEDS ORDERED: CYCLOBENZAPRINE 10 MG TAB PO PRN (00:14)
[2018-08-26] MEDS ORDERED: hydrOXYzine HCL 25 MG TAB PO PRN (00:14)
[2018-08-26] MEDS: HYDROcodone/APAP 7.5-325MG 1 EACH TAB PO SCH ×4 (00:30→20:47)
[2018-08-26] MEDS: AMPICILLIN-SULBACTAM 1.5 GM in SODIUM CHLORIDE 0.9% 50 ML IVPB SCH ×4 (03:43→20:47)
[2018-08-26] MEDS: LOSARTAN 50 MG TAB PO SCH (08:29)
[2018-08-26] MEDS: SODIUM CHLORIDE 0.9% 1,000 ML IV SCH ×2 (08:41→19:27)
[2018-08-26] MEDS: CELECOXIB 200 MG PO SCH ×2 (10:53→20:51)
[2018-08-26] MEDS: VORTIOXETINE HYDROBROMIDE 10 MG TABLET PO SCH (12:23)
--- NOTE | 2018-08-26 17:35 | P.HPIM ---
History of Present Illness H&P Date: 08/26/18 Chief Complaint: Dog bite This is 58-year-old female history of fibromyalgia, hypertension, osteoarthritis, thyroid disorder, anemia, peptic ulcer disease, chronic back pain, Steve fundoplication, thoracic/lumbar surgeries, anxiety, depression ,presented to the ER with complaint of dog bite on the left fourth digit 2 days ago. Patient states she was talking on the phone, not paying attention, startled her pet dog-and he bit her. States her dog is up-to-date on rabies i mmunizations. Updated on tetanus.She went to [facility] received a shot of antibiotics and started on Augmentin. Her finger continued to worsen with redness and edema, ring had to be cut off. Reports difficulty bending left fourth digit, painful. Hand x-ray reporting osteoarthritis without fracture, dislocation or evidence of foreign body. CBC, CMP unremarkable. Afebrile, normal WBC , lactic acid 1.1 .Denies chest pain, palpitations, shortness of breath. Denies lightheadedness, dizziness or focal deficits. VSS.blood cultures obtained, Unasyn initiated. Review of Systems ROS Statement: Those systems with pertinent positive or pertinent negative responses have been documented in the HPI. ROS Other: All systems not noted in ROS Statement are negative. Past Medical History Past Medical History: Fibromyalgia, Hypertension, Osteoarthritis (OA), Thyroid Disorder Additional Past Medical History / Comment(s): anemia, STOMACH ulcers, back pain, no valve function in [facility]- , Cee Funcoplication - to correct valve 10/2013 History of Any Multi-Drug Resistant Organisms: None Reported Past Surgical History: Back Surgery, Bowel Resection, Orthopedic Surgery, Tubal Ligation Additional Past Surgical History / Comment(s): Thoracic/Lumbar back surgery - rods and screws. pain injections, surgery to remove part of thyroid and two tumors 11/2013 Past Anesthesia/Blood Transfusion Reactions: No Reported Reaction Past Psychological History: Anxiety, Depression Smoking Status: Never smoker Past Alcohol Use History: Occasional Past Drug Use History: None Reported - Past Family History Father Family Medical History: Hypertension Mother Family Medical History: Hypertension Medications and Allergies Home Medications Medication Instructions Recorded Confirmed Type Citalopram Hydrobromide [CeleXA] 20 mg PO DAILY 11/01/13 08/25/18 History Celecoxib [CeleBREX] 200 mg PO BID 01/07/15 08/25/18 History HYDROcodone/APAP 7.5-325MG [[place] 1 tab PO TID 01/01/17 08/25/18 History 7.5-325] Losartan Potassium 50 mg PO DAILY 05/29/18 08/25/18 History hydrOXYzine HCL [Atarax] 25 mg PO BID PRN 05/29/18 08/25/18 History Amoxicillin/Potassium Clav 1 tab PO Q12H 08/25/18 08/25/18 History [Augmentin 875-125 Tablet] Cyclobenzaprine [Flexeril] 10 mg PO TID PRN 08/25/18 08/25/18 History Vortioxetine Hydrobromide 10 mg PO DAILY 08/25/18 08/25/18 History [Trintellix] Allergies Allergy/AdvReac Type Severity Reaction Status Date / Time NSAIDS (Non-Steroidal Allergy ULCERS Verified 08/25/18 21:54 Anti-Inflamma aspirin AdvReac HISTORY OF Verified 08/25/18 21:54 STOMACH ULCERS Physical Exam Vitals: Vital Signs Temp Pulse Pulse Resp BP BP Pulse Ox 08/26/18 15:47 79 16 08/26/18 14:10 97.7 F 79 16 128/84 08/26/18 08:00 97.8 F 72 16 129/83 97 08/26/18 04:00 98.1 F 67 16 135/93 99 08/25/18 23:55 97.6 F 73 16 144/93 100 08/25/18 23:10 73 16 08/25/18 23:00 98.3 F 75 18 125/84 99 08/25/18 19:31 97.6 F 84 18 124/84 99 Intake and Output 08/26/18 08/26/18 08/26/18 06:59 14:59 22:59 Intake Total 650 Balance 650 Intake: Intake, IV Titration 650 Amount Ampicillin-Sulbactam 1.5 50 gm In Sodium Chloride 0.9 % 50 ml @ 100 mls/hr IVPB Q6H HIRAL Rx#:[id number] Sodium Chloride 0.9% 1, 600 000 ml @ 100 mls/hr IV . Q10H HIRAL Rx#:[id number] Other: # Voids 1 1 PHYSICAL EXAM: VITAL SIGNS: [As above] GENERAL: Sitting up in bed, no acute distress HEENT: Conjunctivae normal. eyes normal. Oral mucosa moist NECK: No JVD. No thyroid enlargement. No LNs CARDIOVASCULAR: S1, S2 regular. No murmur, rub or gallop RESPIRATION: Breath sounds diminished in the bases. No rhonchi or crackles. No bronchial breathing. ABDOMEN: Soft, nontender. No guarding. no masses palpable. Bowel sounds heard. LEGS: No edema. no swelling PSYCHIATRY: Alert and oriented X3, mood and affect normal. NERVOUS SYSTEM: Cranial N 2-12 grossly normal. Moves all 4 limbs. No focal deficits. Strength and sensation grossly intact. Skin: Dorsal left fourth digit with superficial laceration approximately 1 cm in length ,mild tenderness, edema and redness. Positive radial pulses, capillary refill less than 2 seconds. Limited flexion of affected digit. Lymphatic system. No LN neck axilla or groin. Results CBC & Chem 7: 08/25/18 20:17 08/25/18 20:17 Labs: Abnormal Lab Results - Last 24 Hours (Table) 08/25/18 08/25/18 Range/Units 20:17 20:17 Hgb 11.2 L (11.4-16.0) gm/dL C-Reactive Protein 11.4 H (<10.0) mg/L Thrombosis Risk Factor Assmnt - Choose All That Apply Any of the Below Risk Factors Present?: Yes Each Factor Represents 1 point: Age 41-60 years Other Risk Factors: No Other congenital or acquired thrombophilia - If yes, enter type in comment: No Thrombosis Risk Factor Assessment Total Risk Factor Score: 1 Thrombosis Risk Factor Assessment Level: Low Risk Assessment and Plan Assessment: -Pet,Dog bite left fourth digit, cellulitis, failed outpatient treatment -Osteoarthritis -Fibromyalgia -Hypertension -Hypothyroidism -Anemia -Peptic ulcer disease -History of thoracic, lumbar back surgeries -Anxiety -Depression Plan: Continue on current medication regime ,monitoring and symptomatic treatment. Monitor blood cultures closely. Maintain on gentle IV fluid hydration, IV antibiotics of Unasyn. Home meds have been reviewed and resumed. GI prophylaxis in place. Patient is ambulatory with pneumatic compression/ stockings ordered. Reevaluate in a.m. with potential DC home tomorrow. The impression and plan of care has been dictated as directed. : I performed a history and examination of this patient, discussed the same with the dictator. I agree with the dictator's note ,documented as a scribe. Any additional findings or plans will be noted.
[2018-08-27] MEDS: AMPICILLIN-SULBACTAM 1.5 GM in SODIUM CHLORIDE 0.9% 50 ML IVPB SCH ×4 (03:50→21:36)
[2018-08-27] MEDS: SODIUM CHLORIDE 0.9% 1,000 ML IV SCH ×2 (06:29→15:09)
[2018-08-27] MEDS: HYDROcodone/APAP 7.5-325MG 1 EACH TAB PO SCH ×3 (08:46→21:36)
[2018-08-27] MEDS: VORTIOXETINE HYDROBROMIDE 10 MG TABLET PO SCH (08:47)
[2018-08-27] MEDS: LOSARTAN 50 MG TAB PO SCH (08:47)
[2018-08-27] MEDS: CELECOXIB 200 MG PO SCH ×2 (08:48→21:55)
--- NOTE | 2018-08-27 16:11 | P.PN ---
Subjective Progress Note Date: 08/27/18 Principal diagnosis: Cellulitis s/p dog bite Ms. Dixon is a 58-year-old female with a past medical history of fibromyalgia, hypertension, osteoarthritis, thyroid disorder admitted to the hospital for cellulitis secondary to a dog bite of her left fourth digit. Patient was given argument done as outpatient but she did not respond so admitted to the hospital for IV antibiotic therapy. Today the patient is lying comfortably in bed appears to be no acute distress. She mentions that her redness and swelling of the left 40 checked improved. Now she is able to move her fingers in all directions. Patient denies having any fevers chills or rigors. No chest pain palpitations. No cough or difficulty in breathing. No abdominal pain nausea vomiting or diarrhea. No dysuria or hematuria. Patient's medications have been reviewed. Objective - Vital Signs Vital signs: Vital Signs Temp 98.3 F 08/27/18 11:52 Pulse 74 08/27/18 15:26 Resp 17 08/27/18 15:26 BP 147/90 08/27/18 11:52 Pulse Ox 98 08/27/18 11:52 Intake & Output 08/26/18 08/27/18 08/27/18 18:59 06:59 18:59 Intake Total 1790 Balance 1790 Weight 58.1 kg Intake: Intake, IV Titration 1200 Amount Ampicillin-Sulbactam 1.5 100 gm In Sodium Chloride 0.9 % 50 ml @ 100 mls/hr IVPB Q6H HIRAL Rx#:[id number] Sodium Chloride 0.9% 1, 1100 000 ml @ 100 mls/hr IV . Q10H HIRAL Rx#:[id number] Oral 590 Other: Voiding Method Toilet Toilet # Voids 1 2 3 - Exam GEN. APPEARANCE: alert, in no apparent distress RESPIRATORY EXAM: normal lung sounds bilaterally. Absent: respiratory distress, wheezes, rales, rhonchi, stridor CARDIOVASCULAR EXAM: regular rate, normal rhythm, normal heart sounds. Absent: systolic murmur, diastolic murmur, rubs, gallop, clicks GI/ABDOMINAL EXAM: soft, normal bowel sounds. EXTREMITIES EXAM: No bilateral lower extremity pitting edema SKIN EXAM: Thin and fragile Examination of the left hand - redness and swelling improved compared to yesterday(patient showed pictures in her cell phone from yesterday) neurovascularly intact. - Labs CBC & Chem 7: 08/25/18 20:17 08/25/18 20:17 Labs: Microbiology - Last 24 Hours (Table) 08/25/18 20:17 Blood Culture - Preliminary Blood No Growth after 24 hours Assessment and Plan Assessment: ASSESSMENT Cellulitis status post dog bite - failed outpatient therapy Osteoarthritis Fibromyalgia Hypothyroidism Peptic ulcer disease History of thoracic and lumbar back surgeries Anxiety with depression PLAN: Patient will be continued on Unasyn. Blood cultures no growth so far. Continue with the rest of her medication regimen. Further recommendations depending on the progress of the patient.
[2018-08-27 21:35] VITALS: RESP 16
[2018-08-28] MEDS: SODIUM CHLORIDE 0.9% 1,000 ML IV SCH (02:28)
[2018-08-28] MEDS: AMPICILLIN-SULBACTAM 1.5 GM in SODIUM CHLORIDE 0.9% 50 ML IVPB SCH ×2 (04:18→07:57)
[2018-08-28 07:20] LABS: Basophils % (A) 1 %; Eosinophils # (A) 0.2 k/uL (0-0.7); Eosinophils % (A) 7 %; HCT 33.8 % (34.0-46.0); HGB 10.7 gm/dL (11.4-16.0); Lymphocytes # (A) 1.3 k/uL (1.0-4.8); Lymphocytes % (A) 39 %; MCH 29.4 pg (25.0-35.0); MCHC 31.8 g/dL (31.0-37.0); MCV 92.7 fL (80.0-100.0); Mean Platelet Volume 7.4; Monocytes # (A) 0.2 k/uL (0-1.0); Monocytes % (A) 7 %; Neutrophils # (A) 1.5 k/uL (1.3-7.7); Neutrophils % (A) 44 %; Platelet Count 274 k/uL (150-450); RBC 3.64 m/uL (3.80-5.40); RDW 13.9 % (11.5-15.5); WBC 3.3 k/uL (3.8-10.6)
[2018-08-28 07:32] LABS: African American GFR (CKD) >90 (>60 ml/min/1.73 sqM); Anion Gap 6 mmol/L; Blood Urea Nitrogen 6 mg/dL (7-17); Calcium 8.9 mg/dL (8.4-10.2); Carbon Dioxide 27 mmol/L (22-30); Chloride 108 mmol/L (98-107); Glucose 85 mg/dL (74-99); Potassium 4.4 mmol/L (3.5-5.1); Sodium 141 mmol/L (137-145)
[2018-08-28] MEDS: VORTIOXETINE HYDROBROMIDE 10 MG TABLET PO SCH (07:58)
[2018-08-28] MEDS: HYDROcodone/APAP 7.5-325MG 1 EACH TAB PO SCH (07:58)
[2018-08-28] MEDS: LOSARTAN 50 MG TAB PO SCH (07:58)
[2018-08-28] MEDS: CELECOXIB 200 MG PO SCH (08:01)
--- NOTE | 2018-08-28 13:33 | P.DS ---
Providers Date of admission: 08/25/18 22:03 Expected date of discharge: 08/28/18 Attending physician: Dalton Cook Primary care physician: Dalton Cook [facility] Course: Ms. Dixon is a 58-year-old female with a past medical history of fibromy algia, hypertension, osteoarthritis, thyroid disorder admitted to the hospital for cellulitis of her left fourth digit after a dog bite. Patient had Augmentin given by her PCP but she did not respond to it so admitted to the hospital for IV antibiotic therapy. In the hospital patient has been started on Unasyn and she showed significant improvement of the redness and swelling of her left fourth finger. She had an x-ray of the hand which was showing no fractures or evidence of any foreign body. Patient had labs that were within normal limits without a white count. She also had blood cultures which are showing no growth after 48 hours. Today on the exam patient's vitals have been stable. On physical exam - left hand - minimal redness in the fourth digit. Range of motion within normal limits in all directions. DISCHARGE DIAGNOSIS Cellulitis status post dog bite - failed outpatient therapy Osteoarthritis Fibromyalgia Hypothyroidism Peptic ulcer disease History of thoracic and lumbar back surgeries Anxiety with depression PLAN: Patient is being discharged home on Augmentin for 7 more days. She already has a prescription from her PCP, so she is advised to complete the course. She is advised to follow up with her primary care Dr. Cook in the next 2-3 days. I stressed the importance for follow-up with Dr. Cook, as she is a slow healer and that the bite is close to the bone. She understands the importance of fluid and is willing to follow-up. More than 30 minutes spent towards the discharge of the patient. Patient Condition at Discharge: Fair Plan - Discharge Summary Discharge Rx Participant: No New Discharge Prescriptions: Continue Citalopram Hydrobromide [CeleXA] 20 mg PO DAILY Celecoxib [CeleBREX] 200 mg PO BID HYDROcodone/APAP 7.5-325MG [[place] 7.5-325] 1 tab PO TID hydrOXYzine HCL [Atarax] 25 mg PO BID PRN PRN Reason: Anxiety Losartan Potassium 50 mg PO DAILY Cyclobenzaprine [Flexeril] 10 mg PO TID PRN PRN Reason: Muscle Spasm Amoxicillin/Potassium Clav [Augmentin 875-125 Tablet] 1 tab PO Q12H Vortioxetine Hydrobromide [Trintellix] 10 mg PO DAILY Discharge Medication List Citalopram Hydrobromide [CeleXA] 20 mg PO DAILY 11/01/13 [History] Celecoxib [CeleBREX] 200 mg PO BID 01/07/15 [History] HYDROcodone/APAP 7.5-325MG [[place] 7.5-325] 1 tab PO TID 01/01/17 [History] Losartan Potassium 50 mg PO DAILY 05/29/18 [History] hydrOXYzine HCL [Atarax] 25 mg PO BID PRN 05/29/18 [History] Amoxicillin/Potassium Clav [Augmentin 875-125 Tablet] 1 tab PO Q12H 08/25/18 [History] Cyclobenzaprine [Flexeril] 10 mg PO TID PRN 08/25/18 [History] Vortioxetine Hydrobromide [Trintellix] 10 mg PO DAILY 08/25/18 [History] Follow up Appointment(s)/Referral(s): Dalton Cook DO [Primary Care Provider] - 1-2 days (call wednesday to make appt.) Patient Instructions/Handouts: Amoxicillin/Clavulanate Potassium (By mouth), Animal Bite (ED) Discharge Disposition: HOME SELF-CARE
[2018-08-28 13:58] VITALS: BP 135/93; PULSE 80; TEMP 98
== END 2018-08-28 14:50 | disposition home or self-care (01) ==
LOC: EC 19:27 → 1SOBS 22:03 → 3NMEDONC 08-26 13:13
PROVIDERS: ADMIT Family Medicine; ATTEND Family Medicine
DX: L03.012 Cellulitis of left finger (principal); S61.255A Open bite of left ring finger without damage to nail, initial encounter; M19.042 Primary osteoarthritis, left hand; M79.7 Fibromyalgia; I10 Essential (primary) hypertension; D64.9 Anemia, unspecified; K27.9 Peptic ulcer, site unspecified, unspecified as acute or chronic, without hemorrhage or perforation; E89.0 Postprocedural hypothyroidism; G89.29 Other chronic pain; M54.9 Dorsalgia, unspecified; F41.8 Other specified anxiety disorders; W54.0XXA Bitten by dog, initial encounter; Z79.1 Long term (current) use of non-steroidal anti-inflammatories (NSAID); Z79.891 Long term (current) use of opiate analgesic; Z79.899 Other long term (current) drug therapy; Z88.6 Allergy status to analgesic agent; Z90.49 Acquired absence of other specified parts of digestive tract; Z98.51 Tubal ligation status; Z82.49 Family history of ischemic heart disease and other diseases of the circulatory system
CPT/HCPCS: 96366; 96365; 99284; 36415; 80053; 80048; 83605; 85025 ×2; 86140; 87040; 73130; G0378 ×5; J0295 ×4

== ENCOUNTER 2021-01-12 11:18 | Inpatient (IN) | payer BC, MEDICARE ==
--- NOTE | 2021-01-12 13:16 | XR ---
EXAMINATION TYPE: XR Hip LT and AP Pelvis, XR femur LT DATE OF EXAM: 01/12/2021 CLINICAL HISTORY: pain TECHNIQUE: AP and frogleg views of the left hip are obtained. AP and lateral views of the left femur are also submitted. COMPARISON: None. FINDINGS: There is virtually nondisplaced intratrochanteric fracture noted left hip. No additional fr actures identified. IMPRESSION: 1. There is virtually nondisplaced intratrochanteric fracture noted left hip.
--- NOTE | 2021-01-12 13:37 | ED ---
General Adult HPI - General Chief complaint: Fall Stated complaint: Tripped,fall,lt hip pain Time Seen by Provider: 01/12/21 12:25 Source: patient, RN notes reviewed, old records reviewed Mode of arrival: wheelchair Limitations: no limitations - History of Present Illness Initial comments: This is a 60-year-old female who presents emergency Department complaining that she fell yesterday in her driveway and she has been unable to ambulate on her leg since. Patient complains of left lateral hip pain. Patient denies any other injury. Patient denies hitting her head or neck pain patient denies any upper extremity injury. Patient denies any back pain. Patient denies any other problems at this time. - Related Data Home Medications Medication Instructions Recorded Confirmed Celecoxib [CeleBREX] 200 mg PO BID 01/07/15 01/12/21 HYDROcodone/APAP 7.5-325MG [[place] 1 tab PO TID PRN 01/01/17 01/12/21 7.5-325] hydrOXYzine HCL [Atarax] 25 mg PO BID PRN 05/29/18 01/12/21 Cyclobenzaprine [Flexeril] 10 mg PO TID PRN 08/25/18 01/12/21 Citalopram Hydrobromide [CeleXA] 40 mg PO DAILY 09/17/20 01/12/21 Ondansetron [Zofran] 4 mg PO Q8HR PRN 09/17/20 01/12/21 Pantoprazole Sodium 40 mg PO DAILY 09/17/20 01/12/21 Diclofenac Sodium Gel [Voltaren 6 gm TOPICAL TID PRN 01/12/21 01/12/21 Gel] Ipratropium [place] 0.06%Nasal 2 spray EA NOSTRIL TID PRN 01/12/21 01/12/21 [Atrovent Nasal 0.06%] Losartan Potassium 100 mg PO DAILY 01/12/21 01/12/21 Vortioxetine Hydrobromide 10 mg PO DAILY 01/12/21 01/12/21 [Trintellix] Allergies Allergy/AdvReac Type Severity Reaction Status Date / Time NSAIDS (Non-Steroidal Allergy ULCERS Verified 01/12/21 13:33 Anti-Inflamma aspirin AdvReac HISTORY OF Verified 01/12/21 13:33 STOMACH ULCERS Review of Systems ROS Statement: Those systems with pertinent positive or pertinent negative responses have been documented in the HPI. ROS Other: All systems not noted in ROS Statement are negative. Past Medical History Past Medical History: Fibromyalgia, GERD/Reflux, Hypertension, Osteoarthritis (OA), Thyroid Disorder Additional Past Medical History / Comment(s): anemia, STOMACH ulcers, back pain, no valve function in [place] , Cee Funcoplication - to correct valve 10/2013 History of Any Multi-Drug Resistant Organisms: None Reported Past Surgical History: Back Surgery, Bowel Resection, Orthopedic Surgery, Tubal Ligation Additional Past Surgical History / Comment(s): Thoracic/Lumbar back surgery - rods and screws. pain injections, surgery to remove part of thyroid and two tumors 11/2013. COLONOSCOPY/EGD Past Anesthesia/Blood Transfusion Reactions: No Reported Reaction Past Psychological History: Anxiety, Depression Smoking Status: Former smoker Past Alcohol Use History: Occasional Past Drug Use History: None Reported - Past Family History Father Family Medical History: Hypertension Mother Family Medical History: Hypertension General Exam - General Exam Comments Initial Comments: GENERAL: Patient is well-developed and well-nourished. Patient is nontoxic and well- hydrated and is in mild distress. ENT: Neck is soft and supple. No significant lymphadenopathy is noted. Oropharynx is clear. Moist mucous membranes. Neck has full range of motion without eliciting any pain. EYES: The sclera were anicteric and conjunctiva were pink and moist. Extraocular movements were intact and pupils were equal round and reactive to light. Eyelids were unremarkable. PULMONARY: Unlabored respirations. Good breath sounds bilaterally. No audible rales rhonchi or wheezing was noted. CARDIOVASCULAR: There is a regular rate and rhythm without any murmurs gallops or rubs. ABDOMEN: Soft and nontender with normal bowel sounds. SKIN: Skin is clear with no lesions or rashes and otherwise unremarkable. NEUROLOGIC: Patient is alert and oriented x3. Cranial nerves II through XII are grossly intact. Motor and sensory are also intact. Normal speech, volume and content. Symmetrical smile. MUSCULOSKELETAL: Patient has left lateral hip tenderness. Patient has tenderness with movement of the hip either external rotation or flexion. LYMPHATICS: No significant lymphadenopathy is noted PSYCHIATRIC: Normal psychiatric evaluation. Limitations: no limitations Course Vital Signs 01/12/21 12:21 Temperature 98.9 F Pulse Rate 91 Respiratory 16 Rate Blood Pressure 119/81 O2 Sat by Pulse 98 Oximetry Medical Decision Making - Medical Decision Making Left hip x-ray shows intertrochanteric fracture I spoke with Dr. Ahmadi he agreed to admit the patient admitted the patient wrote admitting orders EKG shows normal sinus rhythm at 83 bpm NH interval 240 QRS is 90 QT interval 42 QTC is 472. Patient's EKG shows inverted T waves in V1 and V2 V3 and V4 and V5. Disposition Clinical Impression: Fall, Fracture, intertrochanteric, left femur Disposition: ADMITTED IP TO THIS HOSP Referrals: Dalton Cook DO [Primary Care Provider] - 1-2 days Time of Disposition: 13:40
[2021-01-12 13:48] LABS: Basophils % (A) 0 %; Eosinophils # (A) 0.1 k/uL (0-0.7); Eosinophils % (A) 1 %; HCT 36.2 % (34.0-46.0); HGB 12.1 gm/dL (11.4-16.0); Lymphocytes # (A) 0.7 k/uL (1.0-4.8); Lymphocytes % (A) 8 %; MCH 31.1 pg (25.0-35.0); MCHC 33.5 g/dL (31.0-37.0); MCV 92.7 fL (80.0-100.0); Mean Platelet Volume 7.3; Monocytes # (A) 0.3 k/uL (0-1.0); Monocytes % (A) 4 %; Neutrophils # (A) 8.1 k/uL (1.3-7.7); Neutrophils % (A) 87 %; Platelet Count 402 k/uL (150-450); RDW 14.3 % (11.5-15.5); WBC 9.3 k/uL (3.8-10.6)
[2021-01-12 14:05] LABS: Partial Thromboplastin Time 24.6 sec (22.0-30.0); Prothrombin Time 10.5 sec (9.0-12.0)
[2021-01-12 14:09] LABS: ALT 18 U/L (4-34); African American GFR (CKD) >90 (>60 ml/min/1.73 sqM); Albumin 3.8 g/dL (3.5-5.0); Anion Gap 9 mmol/L; Blood Urea Nitrogen 6 mg/dL (7-17); Calcium 8.9 mg/dL (8.4-10.2); Carbon Dioxide 23 mmol/L (22-30); Chloride 102 mmol/L (98-107); Glucose 102 mg/dL (74-99); Non-African American GFR(CKD) >90 (>60 ml/min/1.73 sqM); Sodium 134 mmol/L (137-145); Total Bilirubin 0.6 mg/dL (0.2-1.3); Total Protein 6.5 g/dL (6.3-8.2)
--- NOTE | 2021-01-12 14:19 | XR ---
EXAMINATION TYPE: XR chest 2V DATE OF EXAM: 01/12/2021 CLINICAL HISTORY: Difficulty breathing . Fall TECHNIQUE: Frontal and lateral view of the chest. COMPARISON: 01/01/2017 FINDINGS: The cardiomediastinal silhouette is within normal limits for size. Pulmonary vasculature i s normal. There is no focal air space opacity. No pleural effusion. No pneumothorax seen. No acute d isplaced osseous fracture. Extensive spinal surgical hardware of the thoracolumbar spine. IMPRESSION: No acute cardiopulmonary process.
[2021-01-12 14:34] LABS: AST 32 U/L (14-36); Alkaline Phosphatase 95 U/L (38-126); Potassium 3.8 mmol/L (3.5-5.1)
[2021-01-12] MEDS ORDERED: NALOXONE 0.4 MG/ML 1 ML VIAL IV PRN (15:59)
[2021-01-12] MEDS ORDERED: ACETAMINOPHEN TAB 325 MG TAB PO PRN (15:59)
[2021-01-12] MEDS ORDERED: HYDROcodone/APAP 5-325MG 1 EACH TAB PO PRN (16:02)
[2021-01-12] MEDS ORDERED: IPRATROPIUM BROMIDE 0.06% NASAL SPRAY (15 ML) EA NOSTRIL PRN (17:23)
[2021-01-12] MEDS ORDERED: DICLOFENAC SODIUM GEL 100 GM TUBE TOPICAL PRN (17:23)
--- NOTE | 2021-01-12 17:32 | P.CONS ---
History of Present Illness - Reason for Consult Pre operative clearance - History of Present Illness 60-year-old female had a mechanical fall and found to have nondisplaced intertrochanteric fracture of the left hip. Medicine was consulted for preoperative clearance. Patient is not a smoker patient is a very functional woman not dependent on ADLs and IADLs denied any coronary artery disease history denied any alcohol abuse history. Does have some inverted T waves although patient doesn't have any complaints of chest pain at this time. Will obtain echocardiogram. Patient is bit hyponatremic probably because of hypovolemia REVIEW OF SYSTEMS: CONSTITUTIONAL: No fever, no malaise, no fatigue. HEENT: No recent visual problems or hearing problems. Denied any sore throat. CARDIOVASCULAR: No chest pain, orthopnea, PND, no palpitations, no syncope. PULMONARY: No shortness of breath, no cough, no hemoptysis. GASTROINTESTINAL: No diarrhea, no nausea, no vomiting, no abdominal pain. NEUROLOGICAL: No headaches, no weakness, no numbness. HEMATOLOGICAL: Denies any bleeding or petechiae. GENITOURINARY: Denies any burning micturition, frequency, or urgency. MUSCULOSKELETAL/RHEUMATOLOGICAL: Anal the left hip from fractures ENDOCRINE: Denies any polyuria or polydipsia. The rest of the 14-point review of systems is negative. PHYSICAL EXAMINATION: GENERAL: The patient is alert and oriented x3, not in any acute distress. Well developed, well nourished. HEENT: Pupils are round and equally reacting to light. EOMI. No scleral icterus. No conjunctival pallor. Normocephalic, atraumatic. No pharyngeal erythema. No thyromegaly. CARDIOVASCULAR: S1 and S2 present. No murmurs, rubs, or gallops. PULMONARY: Chest is clear to auscultation, no wheezing or crackles. ABDOMEN: Soft, nontender, nondistended, normoactive bowel sounds. No palpable organomegaly. MUSCULOSKELETAL: Deferred to orthopedic surgery EXTREMITIES: No cyanosis, clubbing, or pedal edema. NEUROLOGICAL: Gross neurological examination did not reveal any focal deficits. SKIN: No rashes. Assessment and plan -Preoperative clearance: Patient is low operative risk for surgery considering the the EKG findings I'll obtain an echocardiogram but the possibility of could not disease is low. Don't need to wait for the results of the echocardiogram. -Intertrochanteric fracture of the left hip: Management as per primary service due to prophylaxis program primary service -Depression for which citalopram will be restarted back -GERD -Hypertension hold off antihypertensive medications to avoid perioperative hypotension -Mild hypovolemic hyponatremia gentle hydration DVT prophylaxis: Per primary service Past Medical History Past Medical History: Fibromyalgia, GERD/Reflux, Hypertension, Osteoarthritis (OA), Thyroid Disorder Additional Past Medical History / Comment(s): anemia, STOMACH ulcers, back pain, no valve function in [place]- , Cee Funcoplication - to correct valve 10/2013 History of Any Multi-Drug Resistant Organisms: None Reported Past Surgical History: Back Surgery, Bowel Resection, Orthopedic Surgery, Tubal Ligation Additional Past Surgical History / Comment(s): Thoracic/Lumbar back surgery - rods and screws. pain injections, surgery to remove part of thyroid and two tumors 11/2013. COLONOSCOPY/EGD Past Anesthesia/Blood Transfusion Reactions: No Reported Reaction Past Psychological History: Anxiety, Depression Smoking Status: Former smoker Past Alcohol Use History: Occasional Past Drug Use History: None Reported - Past Family History Father Family Medical History: Hypertension Mother Family Medical History: Hypertension Medications and Allergies Home Medications Medication Instructions Recorded Confirmed Type Celecoxib [CeleBREX] 200 mg PO BID 01/07/15 01/12/21 History HYDROcodone/APAP 7.5-325MG [[place] 1 tab PO TID PRN 01/01/17 01/12/21 History 7.5-325] hydrOXYzine HCL [Atarax] 25 mg PO BID PRN 05/29/18 01/12/21 History Cyclobenzaprine [Flexeril] 10 mg PO TID PRN 08/25/18 01/12/21 History Citalopram Hydrobromide [CeleXA] 40 mg PO DAILY 09/17/20 01/12/21 History Ondansetron [Zofran] 4 mg PO Q8HR PRN 09/17/20 01/12/21 History Pantoprazole Sodium 40 mg PO DAILY 09/17/20 01/12/21 History Diclofenac Sodium Gel [Voltaren 6 gm TOPICAL TID PRN 01/12/21 01/12/21 History Gel] Ipratropium [place] 0.06%Nasal 2 spray EA NOSTRIL TID PRN 01/12/21 01/12/21 History [Atrovent Nasal 0.06%] Losartan Potassium 100 mg PO DAILY 01/12/21 01/12/21 History Vortioxetine Hydrobromide 10 mg PO DAILY 01/12/21 01/12/21 History [Trintellix] Allergies Allergy/AdvReac Type Severity Reaction Status Date / Time NSAIDS (Non-Steroidal Allergy ULCERS Verified 01/12/21 13:33 Anti-Inflamma aspirin AdvReac HISTORY OF Verified 01/12/21 13:33 STOMACH ULCERS Physical Exam Vitals: Vital Signs Temp Pulse Resp BP Pulse Ox 01/12/21 15:00 91 18 138/96 99 01/12/21 12: 98.9 F 91 16 119/81 98 Intake and Output 01/12/21 01/12/21 01/12/21 06:59 14:59 22:59 Other: Weight 52.163 kg Results CBC & Chem 7: 01/12/21 13:27 01/12/21 13:27 Labs: Abnormal Lab Results - Last 24 Hours (Table) 01/12/21 01/12/21 Range/Units 13:27 13:27 Neutrophils # 8.1 H (1.3-7.7) k/uL Lymphocytes # 0.7 L (1.0-4.8) k/uL Sodium 134 L (137-145) mmol/L BUN 6 L (7-17) mg/dL Glucose 102 H (74-99) mg/dL
[2021-01-12] MEDS: SODIUM CHLORIDE 0.9% 1,000 ML IV SCH (18:13)
[2021-01-12] MEDS: HYDROmorphone 1 MG/ML 1 ML SYRINGE IVP PRN (21:05)
[2021-01-12] MEDS: MORPHINE SULFATE 4 MG/ML SYRINGE IVP PRN (22:02)
[2021-01-12] MEDS: HYDROmorphone 0.5 MG/0.5 ML SYRINGE IVP PRN (23:50)
[2021-01-13] MEDS: HYDROmorphone 1 MG/ML 1 ML SYRINGE IVP PRN ×4 (02:19→21:26)
[2021-01-13] MEDS: MORPHINE SULFATE 4 MG/ML SYRINGE IVP PRN ×3 (03:59→23:44)
[2021-01-13] MEDS: SODIUM CHLORIDE 0.9% 1,000 ML IV SCH (06:13)
--- NOTE | 2021-01-13 09:02 | P.HPOR ---
History of Present Illness H&P Date: 01/13/21 Chief Complaint: Left hip fracture This is a 60-year-old female who slipped and fell in her driveway yesterday, sustaining injury to her left hip. She was brought to the emergency department via EMS and we were consulted for orthopedic evaluation. The patient is admitted to our service for surgical intervention regarding her intertrochanteric hip fracture.She has past medical history of GERD, thyroid disorder and fibromyalgia. She has had a spinal fusion from T7-S1 in the past. She also has cervical degenerative disc disease. She has no new complaint of neck or back pain since injury. No head injury or loss of consciousness. Past Medical History Past Medical History: Fibromyalgia, GERD/Reflux, Hypertension, Osteoarthritis (OA), Thyroid Disorder Additional Past Medical History / Comment(s): anemia, STOMACH ulcers, back pain, no valve function in [place]- , [place]ee Funcoplication - to correct valve 10/2013 History of Any Multi-Drug Resistant Organisms: None Reported Past Surgical History: Back Surgery, Bowel Resection, Orthopedic Surgery, Tubal Ligation Additional Past Surgical History / Comment(s): Thoracic/Lumbar back surgery - rods and screws. pain injections, surgery to remove part of thyroid and two tumors 11/2013. COLONOSCOPY/EGD Past Anesthesia/Blood Transfusion Reactions: No Reported Reaction Past Psychological History: Anxiety, Depression Smoking Status: Former smoker Past Alcohol Use History: Occasional Past Drug Use History: None Reported - Past Family History Father Family Medical History: Hypertension Mother Family Medical History: Hypertension Medications and Allergies Home Medications Medication Instructions Recorded Confirmed Type Celecoxib [CeleBREX] 200 mg PO BID 01/07/15 01/12/21 History HYDROcodone/APAP 7.5-325MG [[place] 1 tab PO TID PRN 01/01/17 01/12/21 History 7.5-325] hydrOXYzine HCL [Atarax] 25 mg PO BID PRN 05/29/18 01/12/21 History Cyclobenzaprine [Flexeril] 10 mg PO TID PRN 08/25/18 01/12/21 History Citalopram Hydrobromide [CeleXA] 40 mg PO DAILY 09/17/20 01/12/21 History Ondansetron [Zofran] 4 mg PO Q8HR PRN 09/17/20 01/12/21 History Pantoprazole Sodium 40 mg PO DAILY 09/17/20 01/12/21 History Diclofenac Sodium Gel [Voltaren 6 gm TOPICAL TID PRN 01/12/21 01/12/21 History Gel] Ipratropium [place] 0.06%Nasal 2 spray EA NOSTRIL TID PRN 01/12/21 01/12/21 History [Atrovent Nasal 0.06%] Losartan Potassium 100 mg PO DAILY 01/12/21 01/12/21 History Vortioxetine Hydrobromide 10 mg PO DAILY 01/12/21 01/12/21 History [Trintellix] Allergies Allergy/AdvReac Type Severity Reaction Status Date / Time NSAIDS (Non-Steroidal Allergy ULCERS Verified 01/12/21 13:33 Anti-Inflamma aspirin AdvReac HISTORY OF Verified 01/12/21 13:33 STOMACH ULCERS Physical Examination This is a pleasant 60-year-old female in no acute distress. She is alert and oriented 3. Exam of the head and neck reveal no obvious deformity. She has fairly good cervical spine motion without difficulty or pain. No pain with palpation about cervical spine or paraspinal musculature. Exam of the upper extremities reveals no obvious deformity. She has full shoulder, elbow, wrist and finger motion bilaterally. There is some swelling to the right thumb. Fairly good motion of the thumb. Neurovascular status to the upper extremities is intact. Exam of the lower extremities reveals no obvious deformity. Slight external rotation of the left leg with minimal shortening. She has pain with any motion of the left hip. Full foot and ankle motion without difficulty or pain. Neurovascular status to the lower extremities is intact. Results X-rays of the pelvis and left hip reveal a nondisplaced intertrochanteric fracture of the left hip. - Labs Labs: Abnormal Lab Results - Last 24 Hours (Table) 01/12/21 01/12/21 Range/Units 13:27 13:27 Neutrophils # 8.1 H (1.3-7.7) k/uL Lymphocytes # 0.7 L (1.0-4.8) k/uL Sodium 134 L (137-145) mmol/L BUN 6 L (7-17) mg/dL Glucose 102 H (74-99) mg/dL H & H 01/12/21 Range/Units 13:27 Hgb 12.1 (11.4-16.0) gm/dL Hct 36.2 (34.0-46.0) % Coagulation 01/12/21 Range/Units 13:27 INR 1.0 (<1.2) Result Diagrams: 01/12/21 13:27 01/12/21 13:27 Assessment and Plan (1) Fall Current Visit: Yes Status: Acute Code(s): W19.XXXA - UNSPECIFIED FALL, I NITIAL ENCOUNTER SNOMED Code(s): 0639086 (2) Fracture, intertrochanteric, left femur Current Visit: Yes Status: Acute Code(s): S72.142A - DISPLACED INTERTROCHANTERIC FRACTURE OF LEFT FEMUR, INIT SNOMED Code(s): 349568048 Plan: The clinical and x-ray findings are discussed with the patient. It is recommended she undergo closed reduction with insertion of intertrochanteric nail of the left hip. We are planning surgery for later this afternoon. The procedures discussed in detail including the possible risks and outcomes. After discussion and consideration the patient elects to proceed with surgery.
[2021-01-13] MEDS: CITALOPRAM HYDROBROMIDE 20 MG TAB PO SCH (10:41)
[2021-01-13] MEDS: PANTOPRAZOLE SODIUM 40 MG GRANULE PKT PO SCH (10:44)
[2021-01-13] MEDS ORDERED: IV FLUID CONTINUATION 1,000 ML IV ONE (16:45)
--- NOTE | 2021-01-13 16:50 | ECHOF ---
Referral Reason:Pre-OP evaluation MEASUREMENTS -------- HEIGHT: 165.1 cm WEIGHT: 51.7 kg BP: 128/93 IVSd: 0.9 cm (0.6 - 1.1) LVIDd: 4.3 cm (3.9 - 5.3) LVPWd: 1.3 cm (0.6 - 1.1) EDV(Teich): 84 ml IVSs: 1.9 cm LVIDs: 2.3 cm LVPWs: 1.8 cm %IVS Thck: 113 % ESV(Teich): 18 ml EF(Teich): 78 % %FS: 46 % SV(Teich): 65 ml RVIDd: 3.8 cm (< 3.3) IVC: 21.94 mm RA Diam: 4.7 cm LALs A4C: 5.8 cm LAAs A4C: 17.5 cm LAESV A-L A4C: 45 ml LAESV MOD A4C: 39 ml LALs A2C: 5.6 cm LAAs A2C: 20.8 cm LAESV A-L A2C: 66 ml LAESV MOD A2C: 60 ml LAESV(A-L): 56 ml LAESV Index (A-L): 35.68 ml/m Ao Diam: 3.1 cm (2.0 - 3.7) LA Diam: 3.2 cm (2.7 - 3.8) AV Cusp: 1.9 cm (1.5 - 2.6) EPSS: 0.2 cm MV E Philip: 0.67 m/s MV DecT: 194 ms MV Dec [place]: 3.5 m/s MV A Philip: 0.65 m/s MV E/A Ratio: 1.03 MV PHT: 56 ms LVOT Vmax: 1.19 m/s LVOT maxP.65 mmHg AV Vmax: 1.83 m/s AV maxP.33 mmHg TR Vmax: 3.73 m/s TR maxP.60 mmHg RAP: 20.00 mmHg RVSP: 75.60 mmHg MV EF SLOPE: 50.83 mm/s (70 - 150) MV EXCURSION: 14.70 mm (> 18.000) FINDINGS -------- Sinus rhythm. This was a technically adequate study. The left ventricular size is normal. Left ventricular wall thickness is normal. Overall left vent ricular systolic function is normal with, an EF between 55 - 60 %. The diastolic filling pattern is normal for the age of the patient 8.99. The right ventricle is mild to moderately enlarged. LA is moderately dilated 34-39 ml/m2 The right atrium is mildly enlarged. Interatrial and interventricular septum intact. The aortic valve is trileaflet and appears structurally normal. There is no evidence of aortic regu rgitation. There is no evidence of aortic stenosis. [id number] mitral regurgitation is present. Moderate to severe tricuspid regurgitation present. There is severe pulmonary hypertension. The r ight ventricular systolic pressure, as measured by Doppler, is 75.60mmHg. There is no pulmonic regurgitation present. The aortic root size is normal. The inferior vena cava is dilated with poor inspiratory collapse which is consistent with estimated r ight atrial pressure of 20 mmHg. CONCLUSIONS -------- 1. The left ventricular size is normal. 2. Left ventricular wall thickness is normal. SEPTAL BULGE 3. Overall left ventricular systolic function is normal with, an EF between 55 - 60 %. 4. The diastolic filling pattern is normal for the age of the patient 8.99 5. The right ventricle is mild to moderately enlarged. 6. LA is moderately dilated 34-39 ml/m2 7. The right atrium is mildly enlarged. 8. [id number]-[id number] mitral regurgitation is present. 9. Moderate to severe tricuspid regurgitation present. 10. There is severe pulmonary hypertension. 11. The right ventricular systolic pressure, as measured by Doppler, is 75.60mmHg. 12. The inferior vena cava is dilated with poor inspiratory collapse which is consistent with estimat ed right atrial pressure of 20 mmHg. DRAINAGE DESIGN COORDINATOR: Atiya Garcia RDCS
[2021-01-13] MEDS ORDERED: ONDANSETRON 4 MG/2 ML VIAL ONE (17:07)
[2021-01-13] MEDS ORDERED: DEXAMETHASONE SOD PHOSPHATE 4 MG/ML 1 ML VIAL IVP ONE (17:10)
[2021-01-13] MEDS ORDERED: ONDANSETRON 4 MG/2 ML VIAL IVP ONE (17:10)
[2021-01-13] MEDS ORDERED: NALOXONE 0.4 MG/ML 1 ML VIAL IV PRN (17:13)
[2021-01-13] MEDS ORDERED: HYDROmorphone 0.5 MG/0.5 ML SYRINGE IVP PRN (17:13)
[2021-01-13] MEDS ORDERED: MAGNESIUM HYDROXIDE 2,400 MG/10 ML CUP PO PRN (17:13)
[2021-01-13] MEDS ORDERED: ONDANSETRON 4 MG/2 ML VIAL IVP PRN (17:13)
[2021-01-13] MEDS ORDERED: HYDROmorphone 0.2 MG/1 ML SYRINGE IVP PRN (17:13)
[2021-01-13] MEDS ORDERED: TEMAZEPAM 15 MG CAP PO PRN (17:13)
[2021-01-13] MEDS ORDERED: HYDROmorphone 1 MG/ML 1 ML SYRINGE IVP PRN (17:13)
--- NOTE | 2021-01-13 17:31 | P.PN ---
Subjective Progress Note Date: 01/13/21 This is 60-year-old female sustained an intertrochanteric fracture of the left femur status post fall and multiple other medical issues. Patient is scheduled for surgery today. Pain controlled. T-max 99.1. Echo reported normal LV function, EF 55-60%, moderate dilated LA, mild to moderate mitral regurgitation, moderate to severe tricuspid regurgitation, severe pulmonary hypertension. Objective - Vital Signs Vital signs: Vital Signs Temp 99.1 F 01/13/21 08:33 Pulse 84 01/13/21 08:33 Resp 18 01/13/21 08:33 BP 126/91 01/13/21 08:33 Pulse Ox 96 01/13/21 08:33 Intake & Output 01/12/21 01/13/21 01/13/21 18:59 06:59 18:59 Weight 52.163 kg 52.163 kg - Labs CBC & Chem 7: 01/12/21 13:27 01/12/21 13:27 Labs: Abnormal Lab Results - Last 24 Hours (Table) 01/12/21 01/12/21 Range/Units 13:27 13:27 Neutrophils # 8.1 H (1.3-7.7) k/uL Lymphocytes # 0.7 L (1.0-4.8) k/uL Sodium 134 L (137-145) mmol/L BUN 6 L (7-17) mg/dL Glucose 102 H (74-99) mg/dL Assessment and Plan Assessment: Left femur intertrochanteric fracture, status post fall Cervical degenerative disc disease, history of spinal fusion Gastroesophageal reflux disease Hypertension Hypothyroidism Mild to moderate mitral regurgitation Moderate to severe tricuspid regurgitation Severe pulmonary hypertension Anxiety Depression Nicotine dependence Plan: Continue on current medication regime ,monitoring and symptomatic treatment. Gentle IV fluid hydration. GI prophylaxis with Protonix. DVT prophylaxis and pain management as per primary. Close monitoring of electrolytes with repeat labs ordered for a.m. The impression and plan of care has been dictated as directed. : I performed a history and examination of this patient, discussed the same with the dictator. I agree with the dictator's note ,documented as a scribe. Any additional findings or plans will be noted.
[2021-01-13] MEDS ORDERED: SUCCINYLCHOLINE CHLORIDE 100 MG/5 ML SYR IV ONE (17:33)
[2021-01-13] MEDS ORDERED: KETAMINE 10 MG/ML 20 ML VIAL ONE (17:33)
[2021-01-13] MEDS ORDERED: MIDAZOLAM 2 MG/2 ML VIAL ONE (17:33)
[2021-01-13] MEDS ORDERED: .fentaNYL (PF) 50 MCG/ML 2 ML AMP ONE (17:33)
[2021-01-13] MEDS ORDERED: PROPOFOL 10 MG/ML 20 ML VIAL IV ONE ×2 (17:33)
[2021-01-13] MEDS ORDERED: LIDOCAINE 1% INJ 10MG/ML (20 ML MDV) ONE (17:33)
[2021-01-13] MEDS ORDERED: PHENYLEPHRINE-0.9% NACL SYG 1,000 MCG/10 ML SYRINGE ONE (17:33)
[2021-01-13] MEDS ORDERED: LACTATED RINGERS 1,000 ML IV ONE (18:09)
[2021-01-13] MEDS ORDERED: ceFAZolin 1,000 MG in SODIUM CHLORIDE 0.9% 1,000 ML IRRIGATION ONE (18:19)
--- NOTE | 2021-01-13 18:30 | P.OP ---
Date of Procedure: 01/13/21 Procedure(s) Performed: PREOPERATIVE DIAGNOSIS: Left hip intertrochanteric fracture. POSTOPERATIVE DIAGNOSIS: Left hip intertrochanteric fracture. OPERATION: Left hip intertrochanteric fracture closed reduction and intramedullary nailing using Synthes IT nail. LAS[employer] BEAM MACHINE OPERATOR: Hailey Quintero PA-C (Assistance with: Patient positioning, retraction, exposure, hemostasis, fixation, irrigation, closure, dressing) ANESTHESIA: Gen. ESTIMATED BLOOD LOSS: 25 mL. COMPLICATIONS: None OPERATIVE FINDINGS: See dictation INDICATIONS: Kelli is a 60-year-old female with a history of left intertrochanteric fracture. She has an extensive thoracolumbar surgical history. The patient presents to the operating room today for closed reduction and intramedullary nailing. I discussed the risks of surgery in detail as being inclusive of but not limited to: Bleeding, infection, scarring, discomfort, blood vessel and/or nerve damage, need for further surgery, malunion, nonunion, gait disturbance including persistent or permanent limp, limb length inequality, arthritis, hardware failure, blood clot, pulmonary embolism, , and other risks. The consent form has been signed. PROCEDURE: After appropriate consent was obtained, the patient was taken to the operating room and placed in supine position. General anesthetic was administered and after confirmation of adequate anesthesia, the patient was carefully placed in the supine position on the operating room table in the fracture table. The patient was placed up against a well-padded peroneal post. Care was taken to make sure about that all pressure points were adequately padded. The affected leg was placed in boot traction and the unaffected leg was placed in a well leg lu. Using gentle longitudinal distraction as well as adduction and internal rotation, the fracture was reduced as assessed by AP and lateral C-arm imaging. Once a satisfactory reduction had been obtained, the thigh was prepped and draped in the usual aseptic fashion using ChloraPrep. Ioban drape was used for the case and the patient received intravenous antibiotics prior to incision. Timeout was called, confirming patient identity, side, procedure, and administration of antibiotics. The incision was then created with a #10 blade just proximal to the greater trochanter laterally. It was carried down through skin into the subcutaneous tissues and through fascia. Hemostasis was obtained using electrocautery. The tip of the greater trochanter was palpated and a guide pin was placed at the tip and directed into the femoral shaft as assessed with C-arm imaging. Once optimal pin position had been obtained, a 17 mm reamer was used over the guide pin to create a path for the IT nail. IT nail selected was assembled to the insertion jig on the back table and bushings were checked for accuracy. The nail was then inserted using gentle mallet taps until it was fully deployed. The amount of rotation of the implant was assessed based on the amount of anteversion of the femoral neck. This was rotated to match the patient's femoral neck anteversion and the helical blade guide was placed through the insertion jig and through an incision on the lateral side of the thigh more distal than the first. Once this guide was placed against the lateral cortex of the femur, a guide pin was drilled into the central region of the femoral head and neck as based on AP and lateral C-arm imaging. Once optimal pin position had been obtained, the guidewire was measured and appropriately sized helical blade was selected. The path for the helical blade was prepared using a tapered reamer. The helical blade was then inserted using gentle mallet taps along the guidewire until it was fully deployed. There was no displacement of the fracture during this step. The anti-rotation screw was locked down and the insertion apparatus for the helical blade was removed. The guide pin was then removed. Traction was then removed from the leg and the distal interlock was placed through the jig using standard technique. Finally, the insertion jig for the nail was removed and hernandez l C-arm images were taken and saved in both AP and lateral planes. The final x-rays showed satisfactory positioning of the implant and good reduction of the fracture. The top of the nail was plugged with a small quantity of bone wax and the incisions were then thoroughly irrigated with normal saline. Final hemostasis was obtained using electrocautery and closure of the fascia was performed using 0-Vicryl suture. 2-0 Vicryl suture was used in the subcutaneous tissues and natty were used for the skin. Sterile dressing was then applied and the patient was carefully removed from the fracture table frame and placed onto the stretcher. The patient tolerated the procedure well. There were no complications and 25 mL of blood loss. The patient was then subsequently transferred to recovery room in stable condition. Sponge and needle counts were correct.
[2021-01-13] MEDS ORDERED: MORPHINE SULFATE 4 MG/ML SYRINGE IVP ONE (19:13)
[2021-01-13] MEDS ORDERED: HYDROmorphone 0.5 MG/0.5 ML SYRINGE IVP ONE ×3 (19:23→19:45)
--- NOTE | 2021-01-13 19:42 | FL ---
EXAMINATION TYPE: FL guidance operating room DATE OF EXAM: 01/13/2021 CLINICAL HISTORY: Left hip fracture. TECHNIQUE: Fluoroscopy. COMPARISON: Pelvic and left hip x-ray from yesterday.. FINDINGS: Fluoroscopic guidance was provided during open reduction internal fixation procedure perfo rmed by Dr. Ahmadi. A total of 35 seconds of fluoroscopic time was utilized during the procedure and 2 spot images was acquired. Images acquired show intramedullary kristina with distal transverse fixating screw in larger femoral neck fixating screw through the intertrochanteric fracture left proximal femur. Satisfactory alignment is seen on intraoperative images obtained after reduction and internal fixation. IMPRESSION: As Above.
[2021-01-13] MEDS ORDERED: fentaNYL (PF) 50 MCG/ML 5 ML AMP IVP ONE ×2 (19:59→20:08)
[2021-01-13] MEDS: APIXABAN 2.5 MG TABLET PO SCH (21:25)
[2021-01-13] MEDS: SENNOSIDES-DOCUSATE SODIUM 1 EACH TAB PO SCH (21:26)
[2021-01-13 21:49] LABS: Basophils % (A) 0 %; Eosinophils % (A) 0 %; HCT 33.5 % (34.0-46.0); HGB 10.8 gm/dL (11.4-16.0); Lymphocytes # (A) 0.3 k/uL (1.0-4.8); Lymphocytes % (A) 3 %; MCH 29.9 pg (25.0-35.0); MCHC 32.2 g/dL (31.0-37.0); MCV 92.8 fL (80.0-100.0); Mean Platelet Volume 7.5; Monocytes # (A) 0.1 k/uL (0-1.0); Monocytes % (A) 1 %; Neutrophils % (A) 95 %; Platelet Count 303 k/uL (150-450); RBC 3.61 m/uL (3.80-5.40); RDW 13.5 % (11.5-15.5); WBC 10.5 k/uL (3.8-10.6)
[2021-01-14] MEDS: SODIUM CHLORIDE 0.9% 1,000 ML IV SCH ×4 (01:42→20:03)
[2021-01-14 05:44] LABS: Basophils % (A) 0 %; Eosinophils % (A) 0 %; HCT 28.6 % (34.0-46.0); HGB 9.5 gm/dL (11.4-16.0); Lymphocytes # (A) 0.6 k/uL (1.0-4.8); Lymphocytes % (A) 8 %; MCH 30.5 pg (25.0-35.0); MCV 92.2 fL (80.0-100.0); Mean Platelet Volume 8.2; Monocytes # (A) 0.3 k/uL (0-1.0); Monocytes % (A) 4 %; Neutrophils # (A) 5.7 k/uL (1.3-7.7); Neutrophils % (A) 86 %; Platelet Count 258 k/uL (150-450); RBC 3.11 m/uL (3.80-5.40); RDW 13.7 % (11.5-15.5); WBC 6.6 k/uL (3.8-10.6)
[2021-01-14] MEDS: HYDROcodone/APAP 7.5-325MG 1 EACH TAB PO PRN ×2 (06:52→21:09)
[2021-01-14] MEDS: HYDROmorphone 0.5 MG/0.5 ML SYRINGE IVP PRN (06:56)
[2021-01-14] MEDS: PANTOPRAZOLE SODIUM 40 MG GRANULE PKT PO SCH (07:37)
[2021-01-14] MEDS: CITALOPRAM HYDROBROMIDE 20 MG TAB PO SCH (07:37)
[2021-01-14] MEDS: APIXABAN 2.5 MG TABLET PO SCH ×2 (07:38→21:09)
[2021-01-14] MEDS: diazePAM 5 MG TAB PO PRN (07:41)
[2021-01-14 10:13] LABS: African American GFR (CKD) 113.2 (60.0-200.0); BUN/Creat Ratio 8.67 Ratio (12.00-20.00); Blood Urea Nitrogen 5.2 mg/dL (9.0-27.0); Calcium 8.1 mg/dL (8.7-10.3); Non-African American GFR(CKD) 97.7 (60.0-200.0); Potassium 3.7 mmol/L (3.5-5.5)
[2021-01-14] MEDS ORDERED: ONDANSETRON 4 MG TAB PO PRN (10:32)
--- NOTE | 2021-01-14 10:49 | P.PN ---
Subjective Progress Note Date: 01/14/21 This is a 60-year-old female who is status post closed reduction and intramedullary nailing of the left hip by Dr. Ahmadi. This is postoperative day #1 and patient is seen and evaluated at bedside today. Patient states that she is quite painful today, but she was able to work with physical therapy. Patient denies any fever/chills, numbness, weakness, tingling, abdominal pain, shortness of breath or chest pain. Objective - Vital Signs Vital signs: Vital Signs Temp 98.8 F 01/14/21 05:00 Pulse 87 01/14/21 05:00 Resp 18 01/14/21 05:00 BP 127/83 01/14/21 05:00 Pulse Ox 97 01/14/21 05:00 Intake & Output 01/13/21 01/14/21 01/14/21 18:59 06:59 18:59 Intake Total 951 1800 Output Total 625 1350 Balance 326 450 Weight 52.163 kg Intake: IV 951 400 Intake, IV Titration 900 Amount Sodium Chloride 0.9% 1, 900 000 ml @ 100 mls/hr IV . Q10H [facility] Rx#:[id number] Oral 500 Output: Urine 600 1350 Estimated Blood Loss 25 Other: Voiding Method Indwelling Catheter - Exam Vital signs are stable. Patient is in no acute distress and is alert and or iented 3. Calf is soft and nontender to palpation. Dressing is clean, dry, and intact. Patient has full foot and ankle motion without pain or difficulty. Sensation intact. Neurovascular status and circulatory status are intact. - Labs CBC & Chem 7: 01/14/21 05:24 01/14/21 05:24 Labs: Abnormal Lab Results - Last 24 Hours (Table) 01/13/21 01/14/21 01/14/21 Range/Units 21:33 05:24 05:24 RBC 3.61 L 3.11 L (3.80-5.40) m/uL Hgb 10.8 L 9.5 L (11.4-16.0) gm/dL Hct 33.5 L 28.6 L (34.0-46.0) % Neutrophils # 10.0 H (1.3-7.7) k/uL Lymphocytes # 0.3 L 0.6 L (1.0-4.8) k/uL Anion Gap 9.00 L (10.00-18.00) mmol/L BUN 5.2 L (9.0-27.0) mg/dL BUN/Creatinine Ratio 8.67 L (12.00-20.00) Ratio Glucose 145 H (70-110) mg/dL Calcium 8.1 L (8.7-10.3) mg/dL Assessment and Plan Assessment: Status post closed reduction and intramedullary nailing for left intertrochanteric hip fracture. Plan: Continue routine postop care and pain control. Continue anticoagulation with Eliquis. 50% weightbearing to the left lower extremity. Appreciate input from medicine. Anticipate discharge home with homecare or to ECF in the next 24-48 hours.
[2021-01-14] MEDS: MORPHINE SULFATE 4 MG/ML SYRINGE IVP PRN ×2 (11:01→18:54)
[2021-01-14] MEDS: LOSARTAN 50 MG TAB PO SCH (11:03)
[2021-01-14] MEDS: VORTIOXETINE HYDROBROMIDE 10 MG TABLET PO SCH (11:04)
--- NOTE | 2021-01-14 11:19 | P.PN ---
Subjective Progress Note Date: 01/14/21 This is 60-year-old female sustained an intertrochanteric fracture of the left femur status post fall and multiple other medical issues. Patient is scheduled for surgery today. Pain controlled. T-max 99.1. Echo reported normal LV function, EF 55-60%, moderate dilated LA, mild to moderate mitral regurgitation, moderate to severe tricuspid regurgitation, severe pulmonary hypertension. 01/14/2021 status post left hip intertrochanteric fracture closed reduction and intramedullary nailing.,postop day 1. Tolerated procedure well. Reports surgical pain. Has not yet been out of bed. Passing flatus, no bowel movement. Denies lightheadedness dizziness or focal deficits. Denies chest pain, palpitations or shortness of breath. Objective - Vital Signs Vital signs: Vital Signs Temp 98.8 F 01/14/21 05:00 Pulse 87 01/14/21 05:00 Resp 18 01/14/21 05:00 BP 127/83 01/14/21 05:00 Pulse Ox 97 01/14/21 05:00 Intake & Output 01/13/21 01/14/21 01/14/21 18:59 06:59 18:59 Intake Total 951 1800 Output Total 625 1350 Balance 326 450 Weight 52.163 kg Intake: IV 951 400 Intake, IV Titration 900 Amount Sodium Chloride 0.9% 1, 900 000 ml @ 100 mls/hr IV . Q10H [facility] Rx#:[id number] Oral 500 Output: Urine 600 1350 Estimated Blood Loss 25 Other: Voiding Method Indwelling Catheter - Exam Physical exam: GENERAL: alert and oriented x3, no acute distress. HEENT: Pupils are round and equally reacting to light. EOMI. No scleral icterus. No conjunctival pallor. Normocephalic, atraumatic. CARDIOVASCULAR: S1 and S2 present. No murmurs, rubs, or gallops. PULMONARY: Chest is clear to auscultation, no wheezing or crackles. ABDOMEN: Soft, nontender, nondistended, normoactive bowel sounds. No palpable organomegaly. EXTREMITIES: Left upper lateral leg warm, dressings clean dry and intact, no calf tenderness. NEUROLOGICAL: Gross neurological examination did not reveal any focal deficits. SKIN: No rashes. - Labs CBC & Chem 7: 01/14/21 05:24 01/14/21 05:24 Labs: Abnormal Lab Results - Last 24 Hours (Table) 01/13/21 01/14/21 01/14/21 Range/Units 21:33 05:24 05:24 RBC 3.61 L 3.11 L (3.80-5.40) m/uL Hgb 10.8 L 9.5 L (11.4-16.0) gm/dL Hct 33.5 L 28.6 L (34.0-46.0) % Neutrophils # 10.0 H (1.3-7.7) k/uL Lymphocytes # 0.3 L 0.6 L (1.0-4.8) k/uL Anion Gap 9.00 L (10.00-18.00) mmol/L BUN 5.2 L (9.0-27.0) mg/dL BUN/Creatinine Ratio 8.67 L (12.00-20.00) Ratio Glucose 145 H (70-110) mg/dL Calcium 8.1 L (8.7-10.3) mg/dL Assessment and Plan Assessment: Left femur intertrochanteric fracture, status post fall, status post left hip intertrochanteric fracture closed reduction and intramedullary nailing. Cervical degenerative disc disease, history of spinal fusion Gastroesophageal reflux disease Hypertension Hypothyroidism Mild to moderate mitral regurgitation Moderate to severe tricuspid regurgitation Severe pulmonary hypertension Anxiety Depression Nicotine dependence Plan: Continue on current medication regime ,monitoring and symptomatic treatment. Gentle IV fluid hydration. Pain management/dvt prophylaxis as per primary. Aggressive pulmonary toileting with incentive spirometer reinforced. PT. Ice to surgical site. Discharge planning as per orthopedic surgery possibly tomorrow. The impression and plan of care has been dictated as directed. : I performed a history and examination of this patient, discussed the same with the dictator. I agree with the dictator's note ,documented as a scribe. Any a dditional findings or plans will be noted.
[2021-01-14] MEDS: HYDROmorphone 1 MG/ML 1 ML SYRINGE IVP PRN (20:03)
[2021-01-14] MEDS: SENNOSIDES-DOCUSATE SODIUM 1 EACH TAB PO SCH (21:09)
[2021-01-15] MEDS: MORPHINE SULFATE 4 MG/ML SYRINGE IVP PRN ×2 (05:17→10:37)
[2021-01-15] MEDS: SODIUM CHLORIDE 0.9% 1,000 ML IV SCH (05:17)
[2021-01-15] MEDS: LOSARTAN 50 MG TAB PO SCH (08:37)
[2021-01-15] MEDS: diazePAM 5 MG TAB PO PRN (08:37)
[2021-01-15] MEDS: VORTIOXETINE HYDROBROMIDE 10 MG TABLET PO SCH (08:37)
[2021-01-15] MEDS: APIXABAN 2.5 MG TABLET PO SCH (08:38)
[2021-01-15] MEDS: PANTOPRAZOLE SODIUM 40 MG GRANULE PKT PO SCH (08:38)
[2021-01-15] MEDS: CITALOPRAM HYDROBROMIDE 20 MG TAB PO SCH (08:38)
--- NOTE | 2021-01-15 10:02 | XR ---
EXAMINATION TYPE: XR finger or thumb bilateral DATE OF EXAM: 01/15/2021 COMPARISON: 05/29/2018 right wrist HISTORY: Pain TECHNIQUE: 3 view right thumb FINDINGS: There is joint space narrowing at the metacarpophalangeal joint space. Carpal metacarpal ju nction degenerative change is noted. No acute fractures are evident. Soft tissues appear normal. Follow up exams can be performed 7-10 days from acute trauma for continued pain. IMPRESSION: 1. No acute osseous abnormality. 2. Degenerative joint changes proximal thumb
--- NOTE | 2021-01-15 10:38 | P.DS ---
Providers Date of admission: 01/12/21 15:59 Expected date of discharge: 01/15/21 Attending physician: Corky Ahmadi Consults: 01/12/21 13:52 Consult Physician Urgent Consulting Provider: Almaz Bartholomew Consult Reason/Comments: Medical clearance for surgery Do you want consulting provider notified?: Yes 01/13/21 08:44 Consult Physician Urgent Consulting Provider: Dalton Cook Consult Reason/Comments: Medical management Do you want consulting provider notified?: Yes, Notify in am Primary care physician: Dalton Cook - Discharge Diagnosis(es) (1) Fall Current Visit: Yes Status: Acute (2) Fracture, intertrochanteric, left femur Current Visit: Yes Status: Acute Hospital Course: This is a 60-year-old female who slipped and fell in her driveway on 01/12/2021, sustaining injury to her left hip. She was brought to the emergency department via EMS and we were consulted for orthopedic evaluation. The patient is admitted to our service for surgical intervention regarding her intertrochanteric hip fracture.She has past medical history of GERD, thyroid disorder and fibromyalgia. She has had a spinal fusion from T7-S1 in the past. She also has cervical degenerative disc disease. She has no new complaint of neck or back pain since injury. No head injury or loss of consciousness. The patient was taken to surgery on 01/13/2021 for closed reduction with insertion of intertrochanteric nail of the left hip. The procedure is performed without complication or sequelae. He patient did well postoperatively. Vital signs and labs are stable on postoperative day #2. The patient is discharged to home in good condition. She will have home care for physical therapy.Please see med rec for accurate list of home medications. Patient Condition at Discharge: Fair Plan - Discharge Summary Discharge Rx Participant: No New Discharge Prescriptions: New Sennosides-Docusate Sodium [Senokot-S] 2 each PO HS tab Gabapentin [Neurontin] 300 mg PO BID 5 Days #10 cap Sennosides-Docusate Sodium [Senokot-S] 1 tab PO BID #60 tablet Apixaban [Eliquis] 2.5 mg PO BID #60 tab HYDROcodone/APAP 5-325MG [[place] 5-325] 1 - 2 tab PO Q6HR PRN #32 tab PRN Reason: Pain Continue HYDROcodone/APAP 7.5-325MG [[place] 7.5-325] 1 tab PO TID PRN PRN Reason: Pain hydrOXYzine HCL [Atarax] 25 mg PO BID PRN PRN Reason: Anxiety/ALLERGIES Cyclobenzaprine [Flexeril] 10 mg PO TID PRN PRN Reason: Muscle Spasm Pantoprazole Sodium 40 mg PO DAILY Ondansetron [Zofran] 4 mg PO Q8HR PRN PRN Reason: Nausea Vortioxetine Hydrobromide [Trintellix] 10 mg PO DAILY Losartan Potassium 100 mg PO DAILY Ipratropium [place] 0.06%Nasal [Atrovent Nasal 0.06%] 2 spray EA NOSTRIL TID PRN PRN Reason: COUGH/DRAINAGE Citalopram Hydrobromide [CeleXA] 40 mg PO DAILY Diclofenac Sodium Gel [Voltaren Gel] 6 gm TOPICAL TID PRN PRN Reason: Pain No Action Celecoxib [CeleBREX] 200 mg PO BID Discharge Medication List Celecoxib [CeleBREX] 200 mg PO BID 01/07/15 [History] HYDROcodone/APAP 7.5-325MG [[place] 7.5-325] 1 tab PO TID PRN 01/01/17 [History] hydrOXYzine HCL [Atarax] 25 mg PO BID PRN 05/29/18 [History] Cyclobenzaprine [Flexeril] 10 mg PO TID PRN 08/25/18 [History] Citalopram Hydrobromide [CeleXA] 40 mg PO DAILY 09/17/20 [History] Ondansetron [Zofran] 4 mg PO Q8HR PRN 09/17/20 [History] Pantoprazole Sodium 40 mg PO DAILY 09/17/20 [History] Diclofenac Sodium Gel [Voltaren Gel] 6 gm TOPICAL TID PRN 01/12/21 [History] Ipratropium [place] 0.06%Nasal [Atrovent Nasal 0.06%] 2 spray EA NOSTRIL TID PRN 01/12/21 [History] Losartan Potassium 100 mg PO DAILY 01/12/21 [History] Vortioxetine Hydrobromide [Trintellix] 10 mg PO DAILY 01/12/21 [History] Apixaban [Eliquis] 2.5 mg PO BID #60 tab 01/15/21 [Rx] Gabapentin [Neurontin] 300 mg PO BID 5 Days #10 cap 01/15/21 [Rx] HYDROcodone/APAP 5-325MG [[place] 5-325] 1 - 2 tab PO Q6HR PRN #32 tab 01/15/21 [Rx] Sennosides-Docusate Sodium [Senokot-S] 1 tab PO BID #60 tablet 01/15/21 [Rx] Sennosides-Docusate Sodium [Senokot-S] 2 each PO HS tab 01/15/21 [Rx] Follow up Appointment(s)/Referral(s): Hailey Quintero, KARISHMA [PHYSICIAN HAIR DRESSER] - 2 Weeks Dalton Cook DO [Primary Care Provider] - 1 Week [facility], [NON-STAFF] - 1 Week Activity/Diet/Wound Care/Special Instructions: 50% weightbearing left lower extremity with walker. Leave Optifoam dressing intact 7 days. May shower. Discharge Disposition: HOME WITH HOME HEALTH SERVICES
--- NOTE | 2021-01-15 11:01 | P.PN ---
Subjective Progress Note Date: 01/15/21 This is 60-year-old female sustained an intertrochanteric fracture of the left femur status post fall and multiple other medical issues. Patient is scheduled for surgery today. Pain controlled. T-max 99.1. Echo reported normal LV function, EF 55-60%, moderate dilated LA, mild to moderate mitral regurgitation, moderate to severe tricuspid regurgitation, severe pulmonary hypertension. 01/14/2021 status post left hip intertrochanteric fracture closed reduction and intramedullary nailing.,postop day 1. Tolerated procedure well. Reports surgical pain. Has not yet been out of bed. Passing flatus, no bowel movement. Denies lightheadedness dizziness or focal deficits. Denies chest pain, palpitations or shortness of breath. 01/15/2021 significant clinical improvement. Pain controlled. Ambulating, tolerating exertion well. Denies lightheadedness dizziness or focal deficits. Denies chest pain, palpitations or shortness of breath. Passing flatus, no micki l movement. Objective - Vital Signs Vital signs: Vital Signs Temp 98.3 F 01/15/21 05:00 Pulse 83 01/15/21 05:00 Resp 16 01/15/21 05:00 BP 128/83 01/15/21 05:00 Pulse Ox 95 01/15/21 05:00 Intake & Output 01/14/21 01/15/21 01/15/21 18:59 06:59 18:59 Intake Total 1200 1200 Output Total 300 Balance 900 1200 Intake: Intake, IV Titration 1200 1200 Amount Sodium Chloride 0.9% 1, 1200 1200 000 ml @ 100 mls/hr IV . Q10H [facility] Rx#:[id number] Output: Urine 300 Uretheral (Dillard) 300 Other: Voiding Method Indwelling Catheter Toilet Toilet # Voids 2 - Exam Physical exam: GENERAL: alert and oriented x3, no acute distress. HEENT: Pupils are round and equally reacting to light. EOMI. No scleral icterus. No conjunctival pallor. Normocephalic, atraumatic. CARDIOVASCULAR: S1 and S2 present. No murmurs, rubs, or gallops. PULMONARY: Chest is clear to auscultation, no wheezing or crackles. ABDOMEN: Soft, nontender, nondistended, normoactive bowel sounds. No palpable organomegaly. EXTREMITIES: Left upper lateral leg dressings clean dry and intact, no calf tenderness. NEUROLOGICAL: Gross neurological examination did not reveal any focal deficits. SKIN: No rashes. - Labs CBC & Chem 7: 01/14/21 05:24 01/14/21 05:24 Assessment and Plan Assessment: Left femur intertrochanteric fracture, status post fall, status post left hip intertrochanteric fracture closed reduction and intramedullary nailing. Cervical degenerative disc disease, history of spinal fusion Gastroesophageal reflux disease Hypertension Hypothyroidism Mild to moderate mitral regurgitation Moderate to severe tricuspid regurgitation Severe pulmonary hypertension Anxiety Depression Nicotine dependence Plan: Continue on current medication regime ,monitoring and symptomatic treatment. Pain management/dvt prophylaxis as per primary. Continue with aggressive pulmonary toileting with incentive spirometer reinforced. PT. Discharge planning in progress as per orthopedic surgery. Follow-up with PCP, Dr. Cook in 1 week. The impression and plan of care has been dictated as directed. : I performed a history and examination of this patient, discussed the same with the dictator. I agree with the dictator's note ,documented as a scribe. Any additional findings or plans will be noted.
[2021-01-15 12:16] VITALS: BP 127/85; PULSE 53; RESP 18; TEMP 97.9
== END 2021-01-15 16:19 | disposition home health service (06) | DRG 481 ==
LOC: EC 11:18 → 4SSUR 15:59 → 5NMEDONC 01-13 16:09
PROVIDERS: ADMIT Orthopaedic Surgery; ATTEND Orthopaedic Surgery
PROC: 0QS736Z Reposition Left Upper Femur with Intramedullary Internal Fixation Device, Percutaneous Approach (ICD-10-PCS; principal; 2021-01-13 08:55)
DX: S72.145A Nondisplaced intertrochanteric fracture of left femur, initial encounter for closed fracture (principal); E87.1 Hypo-osmolality and hyponatremia; W01.0XXA Fall on same level from slipping, tripping and stumbling without subsequent striking against object, initial encounter; E03.9 Hypothyroidism, unspecified; Z20.822 Contact with and (suspected) exposure to COVID-19; E86.1 Hypovolemia; F17.200 Nicotine dependence, unspecified, uncomplicated; F32.A Depression, unspecified; F41.9 Anxiety disorder, unspecified; I08.1 Rheumatic disorders of both mitral and tricuspid valves; I27.20 Pulmonary hypertension, unspecified; I10 Essential (primary) hypertension; K21.9 Gastro-esophageal reflux disease without esophagitis; M50.30 Other cervical disc degeneration, unspecified cervical region; M79.7 Fibromyalgia; M19.90 Unspecified osteoarthritis, unspecified site; M54.9 Dorsalgia, unspecified; Z98.1 Arthrodesis status; Z87.11 Personal history of peptic ulcer disease; Z82.49 Family history of ischemic heart disease and other diseases of the circulatory system; Z79.899 Other long term (current) drug therapy; Z79.1 Long term (current) use of non-steroidal anti-inflammatories (NSAID)
CPT/HCPCS: 36415; 71046; 73502; 80048; 80053; 84484; 85025; 85610; 85730; 87635; 93005; 93306; 99285

== ENCOUNTER → 2021-04-02 | Outpatient (CLI) | payer BC, MEDICARE ==
[2021-04-02 11:54] VITALS: BP 130/92; PULSE 82; RESP 18; TEMP 98.3
--- NOTE | 2021-04-02 12:00 | P.CON ---
Consult Note - . Consult date: 04/02/21 Assessment/Plan:: HISTORY OF PRESENT ILLNESS: 60 year old female as a referral from Dr Cleveland presents today with neck pain for the last 15 years due to cervical disc bulges, spondylosis, facet arthropathy and neuroforaminal stenoses for an evaluation. Patient states her neck pain is in the lower aspect of her cervical spine of a achy, tight character of pain accompanied with bilateral sharp, shooting pain towards the superior and middle aspects of the trapezius. Pain is provoked with lifting and extension of the neck. Pain is alleviated with medications, topicals, injections, physical therapy 5 years ago, chiropractic treatments approximately 15 years ago, massage, stretching and rest. Past Medical History: Fibromyalgia, GERD/Reflux, Hypertension, Osteoarthritis (OA), Thyroid Disorder, MDD, Anxiety Past Surgical History: Back Surgery with hardware, Bowel Resection, Orthopedic Surgery, Tubal Ligation, Cee Funcoplication, Thyroidectomy, Colonoscopy, EGD Social History: Former smoker. Occasional ETOH use. No illicit drug use. Family History: Father- Hypertension. Mother- Hypertension All: See list Meds: See list REVIEW OF ORGAN SYSTEMS: CONSTITUTIONAL: No fevers or chills. No recent weight loss. HEENT: No visual acuity loss, eye pain, difficulties with hearing. No nosebleeds. No difficulty swallowing. RESPIRATORY: Denies any troubles with breathing or dyspnea on exertion. CARDIOVASCULAR: Denies any chest pain, palpitations, or recent heart attacks. GASTROINTESTINAL: Denies fatty food intolerance. Has change in bowel habits and gas bloat. GENITOURINARY: Denies any blood in urine. Has increased urinary frequency. NEUROLOGICAL: + numbness and tingling along the distal extremities. No seizure disorders or headaches. MUSCULOSKELETAL: + back pain SKIN: No skin cancer. No rash. PSYCHIATRIC: Denies current depression or suicidal thoughts. ENDOCRINE: Denies current thyroid disorders. Denies any blood sugar glucose intolerance. HEME/LYMPHATIC: Denies any lumps and bumps around the neck. History of deep venous thrombosis. ALLERGY/IMMUNOLOGY: No immunoglobulin therapy. No immune deficiencies. BREAST: Denies current breast lumps, pain or nipple discharge. Physical Examinations : Constitutional : Cooperative , not in acute distress . HEENT: Neck supple. No Lymphadenopathy. Normal thyroid size . Eyes no ptosis , no icterus, no photophobia . Hearing intact. Normal oropharynx. No Thrush. Respiratory : Chest clear to auscultations bilaterally. No wheezing. No rhonchi. Cardiovascular : Regular rate and rhythm , S1 / S2. No S3 . No S4. Gastrointestinal : Abdomen soft. No tenderness. Bowel sounds x 4. No organomegaly . Genitourinary : Deferred. Neurologic : Cranial nerve II to XII intact. No focal neur ological deficits. Psychiatric : alert & oriented x 3. Matching mood & appropriate affect. Judgment & insight intact. Lymphatic No Lymphadenopathy. Musculoskeletal : Cervical Spine Motor strength in the deltoid and biceps: Normal right side. Normal Left side Motor strength biceps and the wrist extensors: Normal right side . Normal left side Motor strength in the triceps muscle: Normal right side. Normal left side Deep tendon reflexes: Normal at the biceps. Normal at Brachioradialis. Normal at triceps Vertebral body tenderness over C5, C6, C7 Cervical facet loading test: positive bilaterally Spurling test: positive Neck distraction test: positive Milka sign: positive bilaterally Lumbar spine Motor strength lower extremities ,thigh and legs 5/5 Right side , 5/5 Left side Deep tendon reflexes : Normal Knee Jerk. Normal Ankle Jerk Vertebral body tenderness over Lumbar facet Loading Test: positive Right / positive Left Range of motion of the lumbar spine Flexion 30 degrees, extension 10 degrees Straight Leg Raise test: Left/ Right positive at degree Alban test: positive right / positive left. Severe tenderness over the Sacroiliac joint on the Right / Left sides Gaenslen test: positive bilaterally Seated flexion test: positive bilaterally. Assessment/ Plan : Recommendation of RODERICK C6-C7 May need repeat procedures (up to 3 within a 6 month period) to obtain sufficient pain relief Risks, benefits of procedure discussed and patient verbalized understanding. Denies aspirin or anti- coagulant use. Denies history of diabetes. All questions answered. I have spent greater than 50 minutes on patient care today. Dr Collier was available by phone for the evaluation of this patient. The time was used to review the medical records including relevant urine studies and Prescription history (MAPs), review of the available imaging, evaluation and examination of the patient, coordination of care with the medical staff and if applicable referring physicians, as well as creation of the medical record PQRS Measure Charge Sheet Mode of Arrival: Ambulatory - Pain Location Neck Non-Pharmacological Interventions: Inactivity Pharmacological Interventions: PRN Medication PQRS Narrative: Smoking Status Never smoker Blood Pressure 130/92 Pain Intensity [Neck] 7 Scale Used Numeric (1 - 10) Hx Alcohol Use (MH) No Home Medications: Ambulatory Orders Celecoxib [CeleBREX] 200 mg PO BID 01/07/15 HYDROcodone/APAP 7.5-325MG [[place] 7.5-325] 1 tab PO TID PRN 01/01/17 hydrOXYzine HCL [Atarax] 25 mg PO BID PRN 05/29/18 Cyclobenzaprine [Flexeril] 10 mg PO TID PRN 08/25/18 Citalopram Hydrobromide [CeleXA] 40 mg PO DAILY 09/17/20 Ondansetron [Zofran] 4 mg PO Q8HR PRN 09/17/20 Pantoprazole Sodium 40 mg PO DAILY 09/17/20 Diclofenac Sodium Gel [Voltaren Gel] 6 gm TOPICAL TID PRN 01/12/21 Ipratropium [place] 0.06%Nasal [Atrovent Nasal 0.06%] 2 spray EA NOSTRIL TID PRN 01/12/21 Losartan Potassium 100 mg PO DAILY 01/12/21 Vortioxetine Hydrobromide [Trintellix] 10 mg PO DAILY 01/12/21 Apixaban [Eliquis] 2.5 mg PO BID #60 tab 01/15/21 Gabapentin [Neurontin] 300 mg PO BID 5 Days #10 cap 01/15/21 HYDROcodone/APAP 5-325MG [[place] 5-325] 1 - 2 tab PO Q6HR PRN #32 tab 01/15/21 Sennosides-Docusate Sodium [Senokot-S] 1 tab PO BID #60 tablet 01/15/21 Sennosides-Docusate Sodium [Senokot-S] 2 each PO HS tab 01/15/21
== END ==
LOC: PNWHC3 11:10
PROVIDERS: ATTEND Physician Assistant Medical
DX: M50.20 Other cervical disc displacement, unspecified cervical region (principal); M48.02 Spinal stenosis, cervical region; M47.812 Spondylosis without myelopathy or radiculopathy, cervical region; I10 Essential (primary) hypertension; M19.90 Unspecified osteoarthritis, unspecified site; F41.9 Anxiety disorder, unspecified; Z87.891 Personal history of nicotine dependence; Z88.6 Allergy status to analgesic agent
CPT/HCPCS: 99211

== ENCOUNTER 2021-05-01 10:10 | Day surgery (SDC) | payer BC, MEDICARE ==
[2021-04-29 13:14] VITALS: BMI 19.7
[~2021-05-01 10:10] MED LIST: LIDOCAINE 1% (10MG/ML) FOR IV START INTRADERMA PRN
[2021-05-01 10:37] VITALS: TEMP 98
[2021-05-01] MEDS: LACTATED RINGERS 1,000 ML IV SCH ×2 (10:38→10:46)
[2021-05-01] MEDS ORDERED: IOPAMIDOL M200 10 ML VIAL ONE (10:48)
[2021-05-01] MEDS ORDERED: MIDAZOLAM 2 MG/2 ML VIAL ONE (10:48)
[2021-05-01] MEDS ORDERED: DEXAMETHASONE SOD PHOSPHATE 10 MG/ML 1 ML VIAL ONE (10:48)
[2021-05-01] MEDS ORDERED: fentaNYL (PF) 50 MCG/ML 2 ML AMP ONE (10:48)
--- NOTE | 2021-05-01 11:04 | P.PCN ---
Date of Procedure: 05/01/21 Procedure(s) Performed: . PROCEDURE 1. Cervical epidural steroid injection under fluoroscopic guidance, C6-7 (fluoroscopy images available in the radiology department ) 2. Cervical epidurogram. PREOPERATIVE DIAGNOSIS: 1- Cervical Degenerative Disc Diseases 2-cervical spondylosis with cervical Facet arthropathy without myelopathy POSTOPERATIVE DIAGNOSIS: : 1- Cervical Degenerative Disc Diseases , 2-cervical spondylosis with cervical Facet arthropathy without myelopathy ANESTHESIA: Local anesthesia with lidocaine 1 % , and moderate sedation, with Versed 2 mg and Fentanyl 100 mcg. EBL 0 PROCEDURE INDICATION: The patient with neck pain and radiculitis unresponsive to conservative treatment consents for procedure. PROCEDURE DESCRIPTION / TECHNIQUE: The patient was seen and identified in the preoperative area. Risks, benefits, complications, including but not limited to infections ,bleeding , allergic reactions to the medications ,and not complete pain releife, and alternatives were discussed with the patient, the patient agreed to proceed with the procedure and signed the consent. Patient was taken to the OR and time out was completed. The patient was placed in the prone position on the procedure table. A pillow was placed under the patients chest to increase the cervical interlaminar space. The cervical area was prepped and draped in the usual sterile fashion. Vital signs were closely monitored during the procedure. Conscious sedation was used during the procedure to decrease patients anxiety. Using anterior-posterior fluoroscopy, the C6-7 interlaminar space was identified and the skin over this site was marked and then infiltrated with 1% lidocaine subcutaneously. Subsequently, a 20-gauge 3-1/2-inch Tuohy epidural needle was inserted and advanced toward the epidural space by means of the ``hanging-drop technique and guided by AP and lateral fluoroscopy. The correct needle position in the epidural space was verified with the injection of 2 mL of the water soluble contrast dye Isovue-200 and observing an excellent epidurogram with the epidural spread of the dye, after negative aspiration for blood and CSF and in the absence of paresthesias. then, mixture containing 20 mg Dexamethasone and 2 ml of preservative-free normal saline injected and a washout of epidurogram was seen. Needle was withdrawn intact, skin was cleansed, and bandages were applied. Complications= none. Disposition= patient was placed in supine position and transferred to the recovery room area in stable condition and there was no evidence of upper or lower extremity motor or sensory deficit after the procedure patient was discharged from recovery room after discharge criteria met and home discharge instructions was given by the staff and patient will follow with the pain clinic in 2-4 weeks
[2021-05-01] MEDS ORDERED: IV FLUID CONTINUATION 1,000 ML IV ONE (11:06)
[2021-05-01 11:08] VITALS: RESP 14
--- NOTE | 2021-05-01 11:15 | FL ---
Fluoroscopy INDICATION: Pain FINDINGS: Fluoroscopy time: 3 seconds. Images obtained: 1. IMPRESSIONS: 1. Documentation of fluoroscopy.
[2021-05-01 11:25] VITALS: BP 114/78; PULSE 80
== END 2021-05-01 11:38 | disposition home or self-care (01) ==
LOC: ORPAIN 10:10
PROVIDERS: ATTEND Specialist
DX: M50.10 Cervical disc disorder with radiculopathy, unspecified cervical region (principal); M47.22 Other spondylosis with radiculopathy, cervical region
CPT/HCPCS: 62321; J2250; J1100; J3010; Q9966; 99152

== ENCOUNTER 2021-07-04 10:26 | Day surgery (SDC) | payer BC ==
[2021-07-03 10:13] VITALS: BMI 19.3
[2021-07-04] MEDS ORDERED: LACTATED RINGERS 1,000 ML IV ONE (10:52)
[2021-07-04 10:54] VITALS: TEMP 98
[2021-07-04] MEDS ORDERED: ROPIVACAINE 5MG/ML 20ML VIAL ONE (11:29)
[2021-07-04] MEDS ORDERED: MIDAZOLAM 2 MG/2 ML VIAL ONE (11:29)
[2021-07-04] MEDS ORDERED: methylPREDNISolone ACETATE 40 MG/ML 1 ML VIAL ONE (11:29)
[2021-07-04] MEDS ORDERED: fentaNYL (PF) 50 MCG/ML 2 ML AMP ONE (11:29)
--- NOTE | 2021-07-04 12:13 | P.PCN ---
Date of Procedure: 07/04/21 Procedure(s) Performed: PREOPERATIVE DIAGNOSIS: Cervical spondylosis with Facet Arthropathy without myelopathy. POSTOPERATIVE DIAGNOSIS: Cervical spondylosis with Facet Arthropathy without myelopathy. PROCEDURES: Radiofrequency thermocoagulation, Bilateral C4, C5, C6 medial branch with Fluroscopy [place](fluoroscopy was available in Radiology department ) (to denervate the facet joint at Bilateral C4- 5 , C5- 6 ) ANESTHESIA: Monitored anesthesia care as per anesthesia department . EBL: Minimal PROCEDURE INDICATION: The patient with neck pain secondary to cervical arthropathy who had more than 50% relief of her pain with previous diagnostic cervical medial branch block. PROCEDURE DESCRIPTION / TECHNIQUE: The patient was seen and identified in the preoperative area. Risks, benefits, complications, and alternatives were discussed with the patient, the patient agreed to proceed with the procedure and signed the consent. IV was started. Vital signs remained stable throughout the procedure. Patient was taken to the OR and time out was completed. The patient was placed in the prone position on the procedure table. A pillow was placed under the patients chest to increase the cervical interlaminar space. The cervical area was prepped and draped in the usual sterile fashion. Critical pause was taken. Vital signs were closely monitored during the procedure. Conscious sedation was used during the procedure to decrease patients anxiety. Using cross-table lateral fluoroscopy, the centroid of the trapezoid of Right C4, C5, and C6 were identified, marked, and localized with 1% lidocaine. Subsequently, a 20 [id number] radiofrequency cannula with a 10-mm active tip was advanced guided by fluoroscopy to the centroid of the trapezoid of right C4, C5, and C6 . Needle tip position was confirmed at the centroid of the trapezoids of right C4, C5, and C6 with anteroposterior fluoroscopy. Each site then underwent sensory testing at 50 Hz and 0 to 1 volt and motor testing at 2 Hz and 0 to 3 volt with local stimulation, but no radicular symptoms down the arm. Thereafter each sites underwent radiofrequency thermocoagulation at 80 degrees celsius for 90 seconds after injecting 0.5 ml of PF Ropivacaine 0.5 %. After thermocoagulation, 1 ml of the block solution containing Depo-Medrol 20 mg and 3 mL of preservative-free normal saline was injected at the right C4, C5, and C6 levels after negative aspiration of CSF and blood and with no paresthesias. Cannulas were retracted while injecting lidocaine 1% until the needle is out, after that the exact same procedure was done for the left side and we did left-sided RFA of the C4 ,C5 ,and C6 leveles. COMPLICATIONS: No acute complications. DISPOSITION / PLANS: The patient was placed in a supine position and transferred to the recovery area in a stable condition for observation and was discharged from the recovery room after meeting discharge criteria. Home discharge instructions given to the patient by the staff. The patient was reexamined prior to discharge. The patient will schedule a follow up in the clinic in 2-4 weeks.
[2021-07-04] MEDS ORDERED: IV FLUID CONTINUATION 1,000 ML IV ONE (12:18)
[2021-07-04 12:23] VITALS: RESP 18
--- NOTE | 2021-07-04 12:29 | FL ---
EXAMINATION TYPE: FL guided pain mgmt statistic DATE OF EXAM: 07/04/2021 CLINICAL HISTORY: Neck pain. TECHNIQUE: Fluoroscopy. COMPARISON: None. FINDINGS: Fluoroscopic guidance was provided during pain relief procedure performed by Kerri Andino A total of 17 seconds of fluoroscopic time was utilized during the procedure and 4 spot images are acquired. Images acquired shows needle localization at several levels posteriorly in the mid cervica l spine. IMPRESSION: As Above.
[2021-07-04 12:35] VITALS: BP 123/84; PULSE 79
== END 2021-07-04 12:50 | disposition home or self-care (01) ==
LOC: ORPAIN 10:26
PROVIDERS: ATTEND Specialist
DX: M47.812 Spondylosis without myelopathy or radiculopathy, cervical region (principal); I10 Essential (primary) hypertension; M19.90 Unspecified osteoarthritis, unspecified site; E07.9 Disorder of thyroid, unspecified; M79.7 Fibromyalgia; Z79.891 Long term (current) use of opiate analgesic; Z79.899 Other long term (current) drug therapy; Z88.6 Allergy status to analgesic agent
CPT/HCPCS: 64633; 64634; J2250; J1030; J3010; J2795

== ENCOUNTER → 2021-07-23 | Outpatient (CLI) | payer BC ==
--- NOTE | 2021-07-23 13:58 | P.PAINPG ---
PQRS Measure Charge Sheet Comment: A 61 yr old female with a history of severe and chronic neck pain secondary to degenerative disc diseases and spondylosis with facet arthropathy presents today for evaluation s/p RFA BL C4-C5, C5-C6. She states she experienced 90% pain relief s/p procedure. Pain level is currently at 7/10 in intensity, dull and achy in the superior aspects of her Trapezius BL, L>R. Pain is provoked by hyperextension. Pain is alleviated with medications ([place], Neurontin, Flexeril), PT last completed 3 weeks ago, topicals, laying supine, looking down and rest. Interventional pain procedures completed include BL RFA C4-C5, C5-C6 Patient is currently on [place], Neurontin, Flexeril prn. Patient denies any side effects of the medication(s), denies excessive drowsiness or sleepiness, denies suicidal ideation and reports that the current pain medication is helping to control the pain and improve activities of daily living. Patient denies any motor or sensory deficits. Patient denies any fever or night sweats, denies any change in the bowel movements or urination. Physical Examination: -Constitutional: Cooperative. Not in acute distress . -HEENT: Neck is supple. No lymphadenopathy. No thyromegaly. Normal thyroid size. Eyes: No ptosis , no icterus, no photophobia. ENT: No auditory deficits. Normal oropharynx. No Thrush. - Respiratory: Chest clear to auscultations bilaterally. No wheezing. No rhonchi. - Cardiovascular: Regular rate and rhythm. S1 / S2 , no S3 , no S4. - Gastrointestinal: Abdomen soft no tenderness. Bowel sounds positive in all four quadrants. No organomegaly. - Genitourinary: Deferred. - Neurologic: Cranial nerve II to XII intact. No focal neurological deficits. - Psychatric: Alert & oriented x 3. Matching mood & appropriate affect. Judgment and insight intact. - Lymphatic: No Lymphadenopathy. - Musculoskeletal: Cervical spine: Muscle bulk/ tone/ strength in the bilateral upper extremities normal Vertebral body tenderness to palpation over Facet loading test positive Thoracic spine Muscle bulk / tone/ strength in the bilateral paraspinal muscles normal Vertebral body tender to palpation over Facet loading test positive Lumbar spine: Motor bulk/ tone/ strength lower extremities , thigh and legs : 5/5 Deep tendon reflexes : Normal Knee Jerk. Normal Ankle Jerk . Vertebral body tenderness to palpation over Lumbar Facet Loading Test positive Straight Leg Raise: positive at 30 degrees right side/ left side Gaenslen's Test positive Sacral spine : Severe tenderness over the Sacroiliac joint: right side / left side Range of motion: Flexion of the lumbar spine <60 degrees Range of motion: Extension of the lumbar spine <20 degrees Gaenslen's Test positive Carlos Manuel's Test positive Alban test: positive right side / left side Thigh Thrust Test Sacral Thrust Test Assessment and plan: Chronic neck pain secondary to degenerative disc disease , spondylosis with facet arthropathy without myelopathy Pt exhibited sufficient and optimal pain relief s/p procedure. Will continue to use home pain mgmt modalities to reduce pain at this time. She may return to our clinic on an as needed basis. All patient questions answered MAPS reviewed and it was appropriate. I have spent 31 minutes on patient care today. Dr Collier was available by phone for the evaluation of this patient. The time was used to review the medical records including relevant urine studies and Prescription history (MAPs), review of the available imaging, evaluation and examination of the patient, coordination of care with the medical staff and if applicable referring physicians, as well as creation of the medical record PQRS Narrative: Smoking Status Never smoker Hx Alcohol Use (MH) No Home Medications: Ambulatory Orders Celecoxib [CeleBREX] 200 mg PO BID 01/07/15 hydrOXYzine HCL [Atarax] 25 mg PO BID PRN 05/29/18 Cyclobenzaprine [Flexeril] 10 mg PO TID PRN 08/25/18 Citalopram Hydrobromide [CeleXA] 40 mg PO DAILY 09/17/20 Ondansetron [Zofran] 4 mg PO Q8HR PRN 09/17/20 Pantoprazole Sodium 40 mg PO DAILY PRN 09/17/20 Diclofenac Sodium Gel [Voltaren Gel] 6 gm TOPICAL TID PRN 01/12/21 Losartan Potassium 100 mg PO DAILY 01/12/21 Vortioxetine Hydrobromide [Trintellix] 10 mg PO DAILY 01/12/21 Gabapentin [Neurontin] 300 mg PO TID 04/29/21 HYDROcodone/APAP 7.5-325MG [[place] 7.5-325] 1 tab PO TID PRN 07/03/21 Controlled Substance Measures - Controlled Substance Measures Is patient prescribed a controlled substance at discharge?: No
[2021-07-23 14:31] VITALS: BP 130/88; PULSE 92; RESP 18; TEMP 98.2
== END ==
LOC: PNWHC3 13:22
PROVIDERS: ATTEND Specialist
DX: M50.30 Other cervical disc degeneration, unspecified cervical region (principal); M47.812 Spondylosis without myelopathy or radiculopathy, cervical region; G89.29 Other chronic pain; Z88.6 Allergy status to analgesic agent
CPT/HCPCS: 99211

== ENCOUNTER → 2022-07-31 | Outpatient (CLI) | payer MEDICARE ==
--- NOTE | 2022-07-31 15:51 | XR ---
EXAMINATION TYPE: XR facial bones complete DATE OF EXAM: 07/31/2022 HISTORY: Pain trauma TECHNIQUE: Three views of the facial bones are submitted. FINDINGS: No evidence for displaced or depressed facial bone fracture. No air-fluid levels within th e sinuses. Soft tissues are radiographically intact. IMPRESSION: No evidence for displaced or depressed facial bone fracture.
== END | disposition home or self-care (01) ==
LOC: RADXRMAIN 15:27
PROVIDERS: ATTEND Family Medicine
DX: S00.83XA Contusion of other part of head, initial encounter (principal)
CPT/HCPCS: 70150

== ENCOUNTER → 2023-02-11 | Outpatient (CLI) | payer MEDICARE ==
--- NOTE | 2023-02-12 14:31 | MM ---
Reason for Exam: Screening (asymptomatic). Last mammogram was performed 5 year(s) and 5 month(s) ago. Patient History: Menarche at age 11. First Full-Term at age 17. Postmenopausal. Risk Values: Zuleyka 5 year model risk: 1.2%. NCI Lifetime model risk: 4.7%. Prior Study Comparison: 10/23/2009 Bilateral Screening Mammogram, [facility]. 10/08/2017 Bilateral Screening Mammogram, [facility]. Tissue Density: There are scattered fibroglandular densities. Findings: Analyzed By CAD. There is no suspicious group of microcalcifications or new suspicious mass. Overall Assessment: Negative, BI-RAD 1 Management: Screening Mammogram of both breasts in [address] [facility] will attempt to contact patient to return for supplemental views and ultrasound if indicated. Patient should continue monthly self-breast exams. A clinical breast exam by your physician is recommended on an annual basis. This exam should not preclude additional follow-up of suspicious palpable abnormalities. Note on Zuleyka scores and lifetime risk: 1. A Zuleyka score greater than 3% is considered moderate risk. If this is the case, consider specialist referral to assess eligibility for a risk reducing agent. 2. If overall lifetime risk for the development of breast cancer is 20% or higher, the patient may qualify for future screening with alternating mammogram and breast MRI. Electronically signed and approved by: Dani Mcadams DO
== END | disposition home or self-care (01) ==
LOC: RADMAMWWP 16:06
PROVIDERS: ATTEND Family Medicine
DX: Z12.31 Encounter for screening mammogram for malignant neoplasm of breast (principal); Z78.0 Asymptomatic menopausal state
CPT/HCPCS: 77067

== ENCOUNTER 2024-01-21 23:48 | Emergency (ER) | payer MEDICARE ==
--- NOTE | 2024-01-22 00:13 | ED ---
Head Injury HPI - General Chief complaint: Head Injury Stated complaint: Fall Time Seen by Provider: 01/21/24 23:55 Source: patient, RN notes reviewed Mode of arrival: wheelchair - History of Present Illness Initial comments: This is a 63-year-old female presenting to the emergency department after a mechanical fall and subsequent head injury. States that she was walking up her stairs back into her house when she went to open her door that was unlocked causing her to fall forward. Patient states that she hit her head on her fall. She denies loss of consciousness or vomiting after the injury. Currently, she is complaining of pain in her neck and feelings of nausea with a mild headache. She denies other injuries at the time of the event. Denies presyncopal symptoms such as chest pain, shortness of breath, difficulty breathing before time of the fall. Last tetanus vaccination was within the last 5 years. Denies blood thinner use. - Related Data Home Medications Medication Instructions Recorded Confirmed Celecoxib [CeleBREX] 200 mg PO BID 01/07/15 07/23/21 hydrOXYzine HCL [Atarax] 25 mg PO BID PRN 05/29/18 07/23/21 Cyclobenzaprine [Flexeril] 10 mg PO TID PRN 08/25/18 07/23/21 Citalopram Hydrobromide [CeleXA] 40 mg PO DAILY 09/17/20 07/23/21 Ondansetron [Zofran] 4 mg PO Q8HR PRN 09/17/20 07/23/21 Pantoprazole Sodium 40 mg PO DAILY PRN 09/17/20 07/23/21 Diclofenac Sodium Gel [Voltaren 1% 6 gm TOPICAL TID PRN 01/12/21 07/23/21 Gel] Losartan Potassium 100 mg PO DAILY 01/12/21 07/23/21 Vortioxetine Hydrobromide 10 mg PO DAILY 01/12/21 07/23/21 [Trintellix] Gabapentin [Neurontin] 300 mg PO TID 04/29/21 07/23/21 HYDROcodone/APAP 7.5-325MG [Economy 1 tab PO TID PRN 07/03/21 07/23/21 7.5-325] Allergies/Adverse reactions: Allergies Allergy/AdvReac Type Severity Reaction Status Date / Time NSAIDS (Non-Steroidal Allergy ULCERS Verified 01/21/24 23:52 Anti-Inflamma aspirin AdvReac HISTORY OF Verified 01/21/24 23:52 STOMACH ULCERS Review of Systems ROS Statement: Those systems with pertinent positive or pertinent negative responses have been documented in the HPI. ROS Other: All systems not noted in ROS Statement are negative. Past Medical History Past Medical History: Fibromyalgia, GERD/Reflux, Hearing Disorder / Deafness, Hypertension, Osteoarthritis (OA), Thyroid Disorder Additional Past Medical History / Comment(s): 09/2020 covid, stomach ulcer that bled, hx hiatal hernia, volvulus, ileus, back pain, scoliosis, disc disease, bilateral hip bursitis, anemia, frequent bronchitis, bilateral tinnitis at times, past cellulitis 4th L digit, left hip fx. in 2020, bruise on left rib area from injury 07/02/21-states does not think fx rib-instructed pt to call pain clinic, fx rt little toe History of Any Multi-Drug Resistant Organisms: None Reported Past Surgical History: Back Surgery, Bowel Resection, Section, Ortho pedic Surgery, Tubal Ligation Additional Past Surgical History / Comment(s): Laparotomy/R colectomy/umbilical hernia repair, florentino fundliplication, EGDs/dilatation, colonoscopies, T7-S1 back surgery with rods/screws, I&D L thumb, back pain injections, partial thyroidectomy d/t benign nodules, D&C, repair of left intertrochantic hip fx. 01-13-21, Past Anesthesia/Blood Transfusion Reactions: No Reported Reaction Additional Past Anesthesia/Blood Transfusion Reaction / Comment(s): Pt has received blood without reaction. Past Psychological History: Anxiety, Depression Smoking Status: Former smoker - Past Family History Father History Unknown: Yes Family Medical History: Cancer Additional Family Medical History / Comment(s): pancreatic Mother Family Medical History: Hypertension Additional Family Medical History / Comment(s): Mother is living. General Exam Head exam: Present: atraumatic, normocephalic, normal inspection, other (laceration to superior scalp aprox 1 cm) Eye exam: Present: normal appearance, PERRL, EOMI. Absent: scleral icterus, conjunctival injection, periorbital swelling ENT exam: Present: normal exam, mucous membranes moist Neck exam: Present: normal inspection, tenderness. Absent: meningismus, full ROM (not assesed- in C-collar), lymphadenopathy Respiratory exam: Present: normal lung sounds bilaterally. Absent: respiratory distress, wheezes, rales, rhonchi, stridor Cardiovascular Exam: Present: regular rate, normal rhythm, normal heart sounds. Absent: systolic murmur, diastolic murmur, rubs, gallop, clicks GI/Abdominal exam: Present: soft, normal bowel sounds. Absent: distended, tenderness, guarding, rebound, rigid Extremities exam: Present: normal inspection, full ROM, normal capillary refill. Absent: tenderness, pedal edema, joint swelling, calf tenderness Neurological exam: Present: alert, oriented X3, CN II-XII intact Course Vital Signs 01/21/24 23:50 Temperature 97.9 F Pulse Rate 70 Respiratory 18 Rate Blood Pressure 116/82 O2 Sat by Pulse 99 Oximetry Medical Decision Making - Medical Decision Making Was pt. sent in by a medical professional or institution (, PA, [employer], urgent care, hospital, or skilled nursing...) When possible be specific @ -No Did you speak to anyone other than the patient for history (EMS, parent, family, police, friend...)? What history was obtained from this source @ -No Did you review nursing and triage notes (agree or disagree)? Why? @ -I reviewed and agree with nursing and triage notes Were old charts reviewed (outside hosp., previous admission, EMS record, old EKG, old radiological studies, urgent care reports/EKG's, skilled nursing records)? Report findings @ -No old charts were reviewed Differential Diagnosis (chest pain, altered mental status, abdominal pain women, abdominal pain men, vaginal bleeding, weakness, fever, dyspnea, syncope, headache, dizziness, GI bleed, back pain, seizure, CVA, palpatations, mental health, musculoskeletal)? @ -Laceration, contusion, cervical neck fracture, concussion, intracranial hemorrhage, this list is not all inclusive EKG interpreted by me (3pts min.). @ - X-rays interpreted by me (1pt min.). @ -None done CT interpreted by me (1pt min.). @ -CT of the brain and C-spine concerning for a acute burst type fracture of the C1 ring/Gamaliel fracture. There is an acute type II odontoid fracture that is unstable. No acute intracranial hemorrhage or midline shift. U/S interpreted by me (1pt. min.). @ -None done What testing was considered but not performed or refused? (CT, X-rays, U/S, lab s)? Why? @ -None What meds were considered but not given or refused? Why? @ -None Did you discuss the management of the patient with other professionals (professionals i.e. , PA, [employer], lab, RT, psych nurse, social economist, automated equipment engineer technician, teacher, staff readiness officer, casework specialist)? Give summary @ -I spoke with logging contractor special forces specialist, Dr. Cleveland, in regard to CT scan findings concerning for a cervical spine fracture. It is recommended that patient be transferred to [facility] as a trauma for further evaluation. Was smoking cessation discussed for >3mins.? @ -No Was critical care preformed (if so, how long)? @ -No Were there social determinants of health that impacted care today? How? (Homelessness, low income, unemployed, alcoholism, drug addiction, transportation, low edu. Level, literacy, decrease access to med. care, long-term, rehab)? @ -No Was there de-escalation of care discussed even if they declined (Discuss DNR or withdrawal of care, Hospice)? DNR status @ -No What co-morbidities impacted this encounter? (DM, HTN, Smoking, COPD, CAD, Cancer, CVA, ARF, Chemo, Hep., AIDS, mental health diagnosis, sleep apnea, morbid obesity)? @ -None Was patient admitted / discharged? Hospital course, mention meds given and route, prescriptions, significant lab abnormalities, going to OR and other pertinent info. @ -Transferred. 63-year-old female presenting after a fall. Patient is placed in c-collar in triage, her vitals are stable. Patient noted to have laceration to the superior scalp with no active bleeding. There are no acute neurovascular deficits on examination. Cervical spine/neck examination unable to be completely obtained due to patient being in c-collar. She is provided with antiemetics and pain medication and will be sent for CT imaging. CT is concerning for a acute burst type fracture of the C1 ring and an acute type II organoid fracture that is unstable. I spoke with on-call special forces specialist, Dr. Cleveland, in regard to CT scan findings. Is recommend that patient be transferred to [facility] as a trauma for further evaluation of unstable glenoid fracture and C1 burst fracture. Patient is provided with additional dose of pain medication. Laboratory studies ordered. Case discussed in depth with my attending, Dr. Hensley Undiagnosed new problem with uncertain prognosis? @ -No Drug Therapy requiring intensive monitoring for toxicity (Heparin, Nitro, Insulin, Cardizem)? @ -No Were any procedures done? @ -No Diagnosis/symptom? @ -Fracture of C1 vertebrae, odontoid fracture Acute, or Chronic, or Acute on Chronic? @ -acute Uncomplicated (without systemic symptoms) or Complicated (systemic symptoms)? @ -complicated Side effects of treatment? @ -No Exacerbation, Progression, or Severe Exacerbation? @ -No Poses a threat to life or bodily function? How? (Chest pain, [place], [place], pneumonia, PE, COPD, DKA, ARF, appy, cholecystitis, CVA, Diverticulitis, Homicidal, Suicidal, threat to staff... and all critical care pts) @ -yes, instability of odontoid fracture may cause neurological deficits if untreated Disposition Clinical Impression: C1 cervical fracture, Odontoid fracture Disposition: OTHER INSTITUTION NOT DEFINED Condition: Serious Referrals: Dalton Cook DO [Primary Care Provider] - 1-2 days Time of Disposition: 01:01 - Out of Hospital Transfer - Req. Specs Out of Hospital Transfer - Requested Specifics: Other Emergency Center ([facility])
[2024-01-22] MEDS: MORPHINE SULFATE 4 MG/ML SYRINGE IVP STA ×2 (00:16→01:05)
[2024-01-22] MEDS: ONDANSETRON 4 MG/2 ML VIAL IVP STA (00:16)
--- NOTE | 2024-01-22 00:50 | CT ---
EXAMINATION TYPE: CT brain bobby anhtony DATE OF EXAM: 01/22/2024 COMPARISON: NONE HISTORY: Patient is coming to facility after a fall. Patient has a laceration to the head, patient aguilar s complaints of neck pain. CT DLP: 1450.9 mGycm. Automated Exposure Control for Dose Reduction was Utilized. TECHNIQUE: CT scan of the head and cervical spine are performed without contrast. FINDINGS: There is no acute intracranial hemorrhage or midline shift identified. There is mild vent ricular and sulcal prominence. There is mild low-attenuation in the periventricular white matter. The calvarium is intact. Low visualized sinuses are clear. Cervical spine is visualized in its entirety from C1 through upper thoracic levels and demonstrates a cute displaced fracture through the anterior C1 ring and right and left lateral elements consistent w ith Gamaliel burst type fracture. In addition there is acute slightly displaced transverse fracture through the base of the odontoid. There is grade 1 anterolisthesis C4 on C5 and C5-C6 with moderate t o advanced disc space narrowing at these levels incidentally seen. IMPRESSION: 1. There is acute burst-type fracture of the C1 ring or Gamaliel fracture. There is acute type II od ontoid fracture. The latter is unstable. Consider MRI follow-up to evaluate for possible cord injury. 2. No acute intracranial hemorrhage or midline shift is seen. Chronic results communicated to the covering emergency room physician by telephone call at time of di ctation. [facility], , 01/22/2024 12:47 AM
[2024-01-22 01:02] LABS: Basophils # (A) 0.1 k/uL (0-0.2); Basophils % (A) 1 %; Eosinophils # (A) 0.2 k/uL (0-0.7); Eosinophils % (A) 3 %; HCT 36.5 % (34.0-46.0); HGB 11.8 gm/dL (11.4-16.0); Lymphocytes # (A) 1.7 k/uL (1.0-4.8); Lymphocytes % (A) 20 %; MCH 30.5 pg (25.0-35.0); MCHC 32.3 g/dL (31.0-37.0); MCV 94.6 fL (80.0-100.0); Mean Platelet Volume 7.5; Monocytes # (A) 0.4 k/uL (0-1.0); Monocytes % (A) 5 %; Neutrophils % (A) 71 %; Platelet Count 326 k/uL (150-450); RBC 3.85 m/uL (3.80-5.40); RDW 13.5 % (11.5-15.5); WBC 8.4 k/uL (3.8-10.6)
[2024-01-22] MEDS: SODIUM CHLORIDE 0.9% 1,000 ML IV SCH (01:05)
[2024-01-22 01:23] LABS: ALT 19 U/L (4-34); AST 30 U/L (14-36); African American GFR (CKD) >90 (>60 ml/min/1.73 sqM); Albumin 4.5 g/dL (3.5-5.0); Alkaline Phosphatase 79 U/L (38-126); Anion Gap 6 mmol/L; Blood Urea Nitrogen 7 mg/dL (7-17); Calcium 9.5 mg/dL (8.4-10.2); Carbon Dioxide 24 mmol/L (22-30); Chloride 107 mmol/L (98-107); Glucose 106 mg/dL (74-99); Non-African American GFR(CKD) 81 (>60 ml/min/1.73 sqM); Potassium 4.1 mmol/L (3.5-5.1); Sodium 137 mmol/L (137-145); Total Bilirubin 0.4 mg/dL (0.2-1.3); Total Protein 6.8 g/dL (6.3-8.2)
[2024-01-22] MEDS: HYDROmorphone 1 MG/ML 1 ML SYRINGE IVP STA (01:50)
--- NOTE | 2024-01-22 01:51 | XR ---
EXAMINATION TYPE: XR chest 1V portable DATE OF EXAM: 01/22/2024 COMPARISON: Chest x-ray January 12, 2021 CLINICAL INDICATION: Female, 63 years old with history of TRAUMA; TECHNIQUE: 2 frontal views of the chest are obtained. FINDINGS: There is no focal air space opacity, pleural effusion, or pneumothorax seen. Cardiomegaly is present. Surgical changes of thoracolumbar spine is partially imaged. There are old fractures of t he posterior lateral right sixth and seventh ribs. IMPRESSION: Cardiomegaly without acute pulmonary process. [facility], , 01/22/2024 1:49 AM
--- NOTE | 2024-01-22 01:53 | XR ---
EXAMINATION TYPE: XR pelvis AP view DATE OF EXAM: 01/22/2024 1:44 AM COMPARISON: None. CLINICAL INDICATION: Female, 63 years old with history of TRAUMA, TECHNIQUE: A single AP view of the pelvis is obtained. FINDINGS: There is no acute displaced fracture evident in the pelvis. Sacroiliac joints are symmetri c and within normal limits. Surgical changes in the lumbar spine extends into the upper sacrum. Surgi denzel changes left hip is present. Pubic symphysis is intact. IMPRESSION: There is no acute fracture or dislocation in the pelvis. [facility], , 01/22/2024 1:50 AM
[2024-01-22 02:11] LABS: INR 0.9 (<1.2); Prothrombin Time 10.2 sec (10.0-12.5)
[2024-01-22 02:14] LABS: Partial Thromboplastin Time 20.9 sec (22.0-30.0)
[2024-01-22 03:22] VITALS: BP 121/81; PULSE 85; RESP 18; TEMP 98
== END 2024-01-22 03:00 | disposition other institution (70) ==
LOC: EC 23:48
DX: S12.01XA Stable burst fracture of first cervical vertebra, initial encounter for closed fracture (principal); S12.101A Unspecified nondisplaced fracture of second cervical vertebra, initial encounter for closed fracture; S09.90XA Unspecified injury of head, initial encounter; Z87.891 Personal history of nicotine dependence; Z88.6 Allergy status to analgesic agent; W10.9XXA Fall (on) (from) unspecified stairs and steps, initial encounter; Y93.01 Activity, walking, marching and hiking
CPT/HCPCS: 36415; 93005; 80053; 85025; 85610; 85730; 72170; 71045; 72125; 70450; 99285; 96374; 96375 ×2; 96376; 96361; L0120; J2270; J2405; J1171

== ENCOUNTER → 2024-04-25 | Outpatient (CLI) | payer MEDICARE ==
--- NOTE | 2024-04-25 14:05 | MM ---
Reason for Exam: Screening (asymptomatic). Last mammogram was performed 1 year(s) and 2 month(s) ago. Patient History: Menarche at age 11. First Full-Term at age 17. Postmenopausal. Patient has history of breast feeding. Patient used Hormonal Contraceptives for 18 years. Risk Values: Zuleyka 5 year model risk: 1.2%. NCI Lifetime model risk: 4.6%. Prior Study Comparison: 10/23/2009 Bilateral Screening Mammogram, [facility]. 10/08/2017 Bilateral Screening Mammogram, [facility]. 02/11/2023 Bilateral MG screening mammo w CAD, [facility]. Tissue Density: There are scattered areas of fibroglandular density. Findings: Analyzed By CAD. Benign-appearing left axillary lymph nodes are redemonstrated. There is no suspicious group of microcalcifications or new suspicious mass in either breast. Overall Assessment: Negative, BI-RAD 1 Management: Screening Mammogram of both breasts in 1 year. . Patient should continue monthly self-breast exams. A clinical breast exam by your physician is recommended on an annual basis. This exam should not preclude additional follow-up of suspicious palpable abnormalities. Note on Zuleyka scores and lifetime risk: 1. A Zuleyka score greater than 3% is considered moderate risk. If this is the case, consider specialist referral to assess eligibility for a risk reducing agent. 2. If overall lifetime risk for the development of breast cancer is 20% or higher, the patient may qualify for future screening with alternating mammogram and breast MRI. [facility], , 04/25/2024 2:02 PM. Electronically signed and approved by: Iam Blanca M.D.
== END | disposition home or self-care (01) ==
LOC: RADMAMWWP 13:07
PROVIDERS: ATTEND Family Medicine
DX: Z12.31 Encounter for screening mammogram for malignant neoplasm of breast (principal); R92.323 Mammographic fibroglandular density, bilateral breasts; Z78.0 Asymptomatic menopausal state; Z92.0 Personal history of contraception
CPT/HCPCS: 77067

== ENCOUNTER → 2024-05-05 | Outpatient (CLI) | payer MEDICARE ==
--- NOTE | 2024-05-05 13:38 | BD ---
EXAMINATION TYPE: Axial Bone Density DATE OF EXAM: 05/05/2024 CLINICAL HISTORY: 63 years old Female. ICD-10 CODE: Z78.0 POST MENOPAUSAL WITHOUT HRT , Additional H istory: Height: 61.5 Weight: 103 FRAX RISK QUESTIONS: Family History (Parent hip fracture): no History of Fracture in Adulthood: yes Secondary Osteoporosis: no Rheumatoid Arthritis: no Current Tobacco Use: occas RISK FACTORS HISTORY OF: Hip Fracture (Left): yes When: 2021 Surgery to Spine/Hip(left): yes When: MEDICATIONS: Thyroid Medications: no Osteoporosis Medications: no EXAM MEASUREMENTS: Bone mineral densitometry was performed using the [employer]. Bone mineral density about the R hip (g/cm2): 0.543 T Score values are as follows: -----R Neck: -2.3 -----R Total: -3.7 Z Score values are as follows: -----R Neck: -0.5 -----R Total: -2.0 Bone mineral density baseline Bone mineral density about the L Wrist (g/cm2): 0.369 T Score values are as follows: -----Dist. R+U: -5.3 -----Prox. R+U: -3.3 -----Radius total: -5.1 Z Score values are as follows: -----Dist. R+U: -3.8 -----Prox. R+U: -1.9 -----Radius total: -3.6 Bone mineral density baseline FRAX%s: The graph provided illustrates a 18.9% chance for a major osteoporotic fx and a 6.4% chance f or the hips probability for fx in 10 years time. IMPRESSION: Osteoporosis (T Score less than -2.5). There is increased fracture risk and therapy is usually indicated based on age. Re-Screen 1-2 years. NOTE: T-SCORE=SD OF THE YOUNG ADULT MEAN. [facility], , 05/05/2024 1:36 PM
== END | disposition home or self-care (01) ==
LOC: RADBDWWP 11:20
PROVIDERS: ATTEND Family Medicine
DX: M81.0 Age-related osteoporosis without current pathological fracture (principal); Z78.0 Asymptomatic menopausal state
CPT/HCPCS: 77080

== ENCOUNTER → 2024-07-14 | Outpatient (CLI) | payer MEDICARE ==
--- NOTE | 2024-07-14 14:42 | CT ---
EXAMINATION TYPE: CT cervical spine wo con CT DLP: 299.80 mGycm, Automated exposure control for dose reduction was used. DATE OF EXAM: 07/14/2024 1:46 PM COMPARISON: CT cervical spine 03/17/2024. CLINICAL INDICATION:Female, 64 years old with history of M43.22 FUSION OF SPINE S12.100D DSPL FX W10. 8XXD; PHH, Checking cervical bone growth/repair. Hx of 2 cervical surgeries, pain TECHNIQUE: Axial CT images from the skull base to the inferior aspect of T2 we obtained without intra venous contrast. Coronal and sagittal reformatted images were also reviewed. FINDINGS: Fracture: Redemonstration of prior fracture of the dens with similar displacement. No surrounding denzel jeff formation. There has been removal of previously seen screw at the base of the odontoid process. S imilar fracture involving the anterior arch of C1 and posterior bilateral C1 arches. No new fractures are identified. Osseous structures: Degenerative changes in the bilateral TMJ joints. Postsurgical changes with anter ior cervical fusion with disc spacer at C4-C5. Hardware appears intact with appropriate alignment. Po stsurgical changes from posterior fixation involving C1-C3. There are bilateral rods with 3 right-carlos ed pedicular screws and 2 left-sided pedicular screws. The hardware appears intact. There is some min imal lucency surrounding the left C1 pedicular screw which appears medial to the C1 pedicle. There is some developing osseous formation around the kristina bilaterally. Prominent Schmorl's node again involvi ng the superior endplate of the T2 vertebral body. Vertebral alignment: Fixation of nearly grade 2 anterolisthesis of C4 on C5. Similar grade 1 anteroli sthesis of C5 on C6. Spinal canal/Neural Foramina: No evidence of significant spinal canal narrowing. Facet joint uncovert ebral joint arthropathy scattered throughout the cervical spine with varying degrees of neural forami nal stenosis. Neck soft tissues: Prevertebral soft tissues are within normal limits. Thyroid lobe is atrophic versu s surgically absent. Other: The airway is patent. The lung apices are clear. IMPRESSION: 1. Interval postsurgical changes from anterior cervical fusion C4-C5 and posterior cervical fusion C1 -C3. Hardware appears intact. There is some minimal lucency surrounding the left C1 pedicular screw. This is situated just medial to the C1 pedicle. 2. Redemonstration of displaced fracture without surrounding callus formation. There has been interva l removal previously demonstrated screw in the base of the odontoid. 3. Redemonstration of anterior and posterior arch C1 fractures without callus formation. 4. Fixed nearly grade 2 anterolisthesis of C4 on C5 with similar grade 1 anterolisthesis of C5 on C6. [facility], , 07/14/2024 2:40 PM
== END | disposition home or self-care (01) ==
LOC: RADCTMAIN 13:20
PROVIDERS: ATTEND Specialist
DX: S12.100D Unspecified displaced fracture of second cervical vertebra, subsequent encounter for fracture with routine healing (principal); W10.8XXD Fall (on) (from) other stairs and steps, subsequent encounter; M43.12 Spondylolisthesis, cervical region; M43.22 Fusion of spine, cervical region; Z98.1 Arthrodesis status
CPT/HCPCS: 72125